=== PATIENT | female | born 1955 | race Caucasian/White ===

== ENCOUNTER 2017-04-24 04:29 | Emergency (ER) | payer BC, MEDICARE ==
[~2017-04-24] VITALS: Ht 167.6 cm; Wt 56.7 kg
[~2017-04-24 04:29] MED LIST: ACHD5005 PO; ALBU8.5H2 IH; AMIT25TA9 PO; ASP81TEC PO; CEFU250T11 PO; CIPR500T78 PO; DLT120CCR PO; LEVO75TA6 PO; METR500T PO; NAPR-689 PO; OMG1KC PO; PNT40TEC PO; RNT150T PO; TRIF5TAB PO; fish oil
[2017-04-24] MEDS ORDERED: RT-ALBUINH IH (06:23)
[2017-04-24] MEDS ORDERED: AZIT250T5 PO (06:23)
[2017-04-24] MEDS ORDERED: BENZ200C51 PO (06:23)
--- NOTE | 2017-04-24 06:24 | ED General ---
General Chief Complaint: Cough/Cold/Flu Symptoms Stated Complaint: COUGH Nursing Triage Note: PT TO ED 6 W/ C/O COUGH X3WKS. REPORTS WAS SEEN BY [facility]RGENT [facility], DX W/ PNEUMONIA BUT NOT "BILEPLASMA PNEUMONIA". STATES SHE WAS GIVEN ABX AT THAT TIME, TOOK IT FOR A FEW DAYS, STARTED TO FEEL BETTER BUT BEGAN TO BREAK OUT IN A RASH SO SHE STOPPED. STATES SYMPTOMS WORSENED AGAIN YESTERDAY. NO OTHER C/O VOICED Nursing Sepsis Screen: No Definite Risk Source of Information: Patient Exam Limitations: No Limitations History of Present Illness Time Seen by Provider: 04:32 Initial Comments This 62-year-old woman presents to the emergency room with complaint of cough 3 weeks. She was initially treated by urgent care for pneumonia with Levaquin. However, she developed a rash related to the Levaquin and discontinued use. Cough initially improved while on the antibiotics but promptly rebounded. She apparently was tested for mycoplasma pneumonia and was negative. Patient is immunocompromised at baseline due to CLL. She is afebrile. She reports her cough is very disruptive and affects her sleep. Allergies and Home Medications Allergies Coded Allergies: levofloxacin (Verified Allergy, Intermediate, RASH, 04/24/17) Sulfa (Sulfonamide Antibiotics) (Verified Allergy, Unknown, 04/24/17) prednisone (Verified Allergy, Unknown, 04/24/17) Home Medications Albuterol 8.5 Gm Hfa.aer.ad, 8.5 GM IH PRN, (Reported) 1 INHALATION EVERY 4 HOURS NEEDED FOR WHEEZING OR SHORTNESS OF BREATH Albuterol Sulfate 1 Puff Puff, 2 PUFF IH Q4H PRN for SHORTNESS OF BREATH, #1 1 PUFF = 90 MCG Prescribed by: AYO HERMOSILLO on 04/24/17622 Amitriptyline Hcl 25 Mg Tab, 25 MG PO HS, (Reported) Aspirin 81 Mg Tabec, 81 MG PO DAILY, (Reported) Azithromycin 250 Mg Tablet, 250 MG PO UD, #6 TAKE 2 TABLETS ON DAY ONE THEN TAKE 1 TABLET DAILY FOR FOUR MORE DAYS Prescribed by: AYO HERMOSILLO on 04/24/17622 Benzonatate 200 Mg Capsule, 200 MG PO TID PRN for COUGH, #20 Prescribed by: AYO HERMOSILLO on 04/24/1723 Levothyroxine Sodium 75 Mcg Tablet, 75 MCG PO DAILY, (Reported) Naproxen 500 Mg Tablet, 1 TAB PO BID, #60 Prescribed by: ERIK CAMACHO on 08/08/14 9883 Trifluoperazine Hcl 5 Mg Tablet, 5 MG PO HS, (Reported) Constitutional: no symptoms reported EENTM: no symptoms reported Respiratory: see HPI Cardiovascular: no symptoms reported Gastrointestinal: no symptoms reported Genitourinary: no symptoms reported Musculoskeletal: no symptoms reported Skin: no symptoms reported Psychiatric/Neurological: No Symptoms Reported Hematologic/Lymphatic: No Symptoms Reported Immunological/Allergic: see HPI Past Juzpflq-Tnxbgh-Sjbyme Hx Patient Social History Alcohol Use: Denies Use Recreational Drug Use: No Smoking Status: Current Everyday Smoker Type Used: Cigarettes 2nd Hand Smoke Exposure: Yes Recent Foreign Travel: No Contact w/Someone Who Travel: No Recent Infectious Disease Expo: No Recent Hopitalizations: No Seasonal Allergies Seasonal Allergies: No Surgeries HX Surgeries: Yes (CARPAL TUNNEL) Surgeries: Hysterectomy, Tubal Ligation Respiratory Hx Respiratory Disorders: Yes Respiratory Disorders: Asthma Cardiovascular Hx Cardiac Disorders: Yes Cardiac Disorders: High Cholesterol Neurological Hx Neurological Disorders: No 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 Genitourinary Hx Genitourinary Disorders: No Gastrointestinal Hx Gastrointestinal Disorders: Yes Gastrointestinal Disorders: Irritable Bowel Musculoskeletal Hx Musculoskeletal Disorders: No Endocrine Hx Endocrine Disorders: Yes Endocrine Disorders: Hyperthyroidism HEENT HX ENT Disorders: No Cancer Hx Cancer: Yes Cancer: Leukemia (CLL) Psychosocial Hx Psychiatric Problems: No Blood Transfusions Hx Blood Disorders: No Physical Exam Vital Signs Vital Sign - Last 12Hours 04/24/17 04:33 Temp 96.4 Pulse 72 Resp 20 B/P (MAP) 135/85 Pulse Ox 99 O2 Delivery Room Air Capillary Refill : Less Than 3 Seconds General Appearance: No Apparent Distress, WD/WN HEENT: PERRL/EOMI, Normal ENT Inspection, Pharynx Normal Neck: Normal Inspection Respiratory: Lungs Clear, Normal Breath Sounds, No Accessory Muscle Use, No Respiratory Distress, Other (forced expiration is a bit delayed and triggers cough) Cardiovascular: Regular Rate, Rhythm, No Edema, No Murmur Gastrointestinal: Normal Bowel Sounds, Non Tender, Soft Extremity: Normal Inspection, No Pedal Edema Neurologic/Psychiatric: Alert, Oriented x3, No Motor/Sensory Deficits, Normal 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 However, given patient's smoking and CLL, I feel it is appropriate to treat for this prolonged cough. Patient was advised to quit smoking immediately. She was given a prescription for Tessalon Perles for cough suppression and a prescription for azithromycin. A prescription for ProAir inhaler was given for treatment of the bronchospastic component. Diagnostic Imaging Diagonstic Imaging: Xray Plain Films/CT/US/NM/MRI: chest Comments Chest x-ray viewed by me. Report not yet available. No acute abnormalities appreciated. Departure Impression Impression: Primary Impression: Acute bronchitis Qualified Codes: J20.9 - Acute bronchitis, unspecified Disposition: 01 HOME, SELF-CARE Condition: Stable Departure-Patient Inst. Decision time for Depature: 06:10 Referrals: ROMEO ALEJANDRE DO (PCP/Family) Primary Care Physician Patient Instructions: Acute Bronchitis, Adult (DC), SMOKING CESSATION Add. Discharge Instructions: Discontinue smoking immediately. You may use nicotine replacement such as patches. Also placed something in your hands and mouth such as toothpicks, gum , etc. to satisfy the hand and mouth habit. Use your inhaler as prescribed. Complete your antibiotics as prescribed. Follow-up with your primary care provider in a few days if not improving. All discharge instructions reviewed with patient and/or family. Voiced understanding. Scripts Azithromycin (Azithromycin) 250 Mg Tablet 250 MG PO UD, #6 TAB TAKE 2 TABLETS ON DAY ONE THEN TAKE 1 TABLET DAILY FOR FOUR MORE DAYS Prov: AYO KIRK MD 04/24/17 Benzonatate (Benzonatate) 200 Mg Capsule 200 MG PO TID Y for COUGH, #20 CAP Prov: AYO KIRK MD 04/24/17 Albuterol Sulfate (PROAIR HFA) 1 Puff Puff 2 PUFF IH Q4H Y for SHORTNESS OF BREATH, #1 PUFF 1 PUFF = 90 MCG Prov: AYO KIRK MD 04/24/17 AYO KIRK MD Apr 24, 2017 06:23
[2017-04-24 06:27] VITALS: BP 131/78
--- NOTE | 2017-04-24 07:02 | Diagnostic Imaging Report ---
INDICATION: Persistent cough. PA and lateral views of the chest are obtained. Comparison is made to study of 05/17/2013. Heart size and pulmonary vascularity remain within normal limits. There is no evidence of pneumothorax or consolidation. Surgical clips are again seen in the left axilla. No significant pleural fluid is detected. IMPRESSION: No acute abnormality or adverse change is identified. Dictated by: Dictated on workstation # [id number]
== END 2017-04-24 06:27 | disposition home or self-care (01) ==
LOC: EDUNIT# 04:29 → ER 04:31
DX: J20.9 Acute bronchitis, unspecified (principal); J45.909 Unspecified asthma, uncomplicated; E78.00 Pure hypercholesterolemia, unspecified; E03.9 Hypothyroidism, unspecified; F17.210 Nicotine dependence, cigarettes, uncomplicated; Z85.6 Personal history of leukemia; Z79.82 Long term (current) use of aspirin; Z90.710 Acquired absence of both cervix and uterus; Z98.51 Tubal ligation status
CPT/HCPCS: 71020; 99282

== ENCOUNTER 2017-09-22 04:39 | Emergency (ER) | payer BC ==
[~2017-09-22] VITALS: Ht 170.2 cm; Wt 56.7 kg
[~2017-09-22 04:39] MED LIST changes: +AZIT250T12 PO; +BENZ200C51 PO; +RT-ALBUINH IH
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
[2017-09-22] MEDS ORDERED: ZOLP5TAB7 (04:51)
[2017-09-22] MEDS ORDERED: ATOR80TA76 (04:51)
[2017-09-22] MEDS ORDERED: RT-ALBUTEROL/IPRATROPIUM 3 ML (DUONEB) VIAL INH ONE (05:00)
--- NOTE | 2017-09-22 05:02 | ED Respiratory ---
General Chief Complaint: Cough/Cold/Flu Symptoms Stated Complaint: POSS KIDNEY INFECTION,POSS FEVER,SOB Nursing Triage Note: possible fever, cough, bodyache x3 days Source: patient, other Exam Limitations: no limitations History of Present Illness Time seen by provider: 04:52 Initial Comments Patient presents to ER by private conveyance with a significant other and a chief complaint of for 3 days she's had progressively worsening bodyaches chills and occasional cough nonproductive of sputum. She feels like she's had a fever but she's not checked with a thermometer. She has not taken any Tylenol or Motrin. She does not have a history of COPD however she does smoke about a pack a day. The last couple days she's reduced down to 1 or 2 cigarettes per day. She also has a history of CLL but she is not on any current treatment for this. She denies using breathing treatments having asthma or other structural lung disease. No nausea, vomiting, diarrhea, rash. Allergies and Home Medications Allergies Coded Allergies: levofloxacin (Verified Allergy, Intermediate, RASH, 04/24/17) Sulfa (Sulfonamide Antibiotics) (Verified Allergy, Unknown, 04/24/17) prednisone (Verified Allergy, Unknown, 04/24/17) Home Medications Albuterol 8.5 Gm Hfa.aer.ad, 8.5 GM IH PRN, (Reported) 1 INHALATION EVERY 4 HOURS NEEDED FOR WHEEZING OR SHORTNESS OF BREATH Albuterol Sulfate 1 Puff Puff, 2 PUFF IH Q4H PRN for SHORTNESS OF BREATH, #1 1 PUFF = 90 MCG Prescribed by: AYO HERMOSILLO on 04/24/17 0623 Amitriptyline Hcl 25 Mg Tab, 25 MG PO HS, (Reported) Aspirin 81 Mg Tabec, 81 MG PO DAILY, (Reported) Atorvastatin Calcium 80 Mg Tablet, (Reported) Levothyroxine Sodium 75 Mcg Tablet, 75 MCG PO DAILY, (Reported) Trifluoperazine Hcl 5 Mg Tablet, 5 MG PO HS, (Reported) Zolpidem Tartrate 5 Mg Tablet, (Reported) Constitutional: chills, No fever, malaise EENTM: No hearing loss, No ear pain Respiratory: cough, No phlegm, short of breath, No wheezing Cardiovascular: No chest pain, No palpitations Gastrointestinal: No nausea, No vomiting Genitourinary: No discharge, No dysuria Musculoskeletal: muscle pain (whole body) Skin: No pruritus, No rash Past Pozuvvy-Ifqvyr-Rlwdyc Hx Patient Social History Alcohol Use: Denies Use Recreational Drug Use: No Smoking Status: Current Everyday Smoker Type Used: Cigarettes 2nd Hand Smoke Exposure: Yes Recent Foreign Travel: No Contact w/Someone Who Travel: No Recent Infectious Disease Expo: No Recent Hopitalizations: No Seasonal Allergies Seasonal Allergies: No Surgeries History of Surgeries: Yes (CARPAL TUNNEL) Surgeries: Hysterectomy, Tubal Ligation Respiratory History of Respiratory Disorde: Yes Respiratory Disorders: Asthma Cardiovascular History of Cardiac Disorders: Yes Cardiac Disorders: High Cholesterol Neurological History of Neurological Disord: No 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 Genitourinary History of Genitourinary Disor: Yes Genitourinary Disorders: UTI-Chronic Gastrointestinal History of Gastrointestinal Di: Yes Gastrointestinal Disorders: Gastroesophageal Reflux, Irritable Bowel Musculoskeletal History of Musculoskeletal Dis: No Endocrine History of Endocrine Disorders: Yes Endocrine Disorders: Hyperthyroidism HEENT History of HEENT Disorders: No Cancer History of Cancer: Yes Cancer: Leukemia Psychosocial History of Psychiatric Problem: No Integumentary History of Skin or Integumenta: No Blood Transfusions History of Blood Disorders: No Physical Exam Vital Signs Vital Sign - Last 12Hours Capillary Refill : Less Than 3 Seconds General Appearance: WD/WN, no apparent distress Eyes: Bilateral Eye Normal Inspection, Bilateral Eye PERRL, Bilateral Eye EOMI HEENT: PERRL/EOMI, normal ENT inspection, TMs normal, pharynx normal (oral mucosa is mildly dry), No pharyngeal erythema, No tonsillar exudate Neck: non-tender, supple, normal inspection Respiratory: chest non-tender, no respiratory distress, no accessory muscle use , decreased breath sounds, rhonchi (few bilateral) Cardiovascular: normal peripheral pulses, regular rate, rhythm, no edema Neurologic/Psychiatric: alert, normal mood/affect, oriented x 3 Skin: normal color, warm/dry Progress/Results/Core Measures Suspected Sepsis Recent Fever Within 48 Hours: No Infection Criteria Present: None New/Unexplained Altered Menta: No Sepsis Screen: No Definite Risk Sepsis Diagnosis: SIRS Temperature:98.9 Pulse: 87 Respiratory Rate: 16 Laboratory Tests 09/22/17 05:00: White Blood Count 23.3H Blood Pressure 145 /81 Mean: 102 Laboratory Tests 09/22/17 05:00: Creatinine 0.85, Platelet Count 287, Total Bilirubin 0.5 Results/Orders Lab Results Laboratory Tests Test 09/22/17 05:00 Range/Units White Blood Count 23.3 H 4.3-11.0 10^3/uL Red Blood Count 4.56 4.35-5.85 10^6/uL Hemoglobin 15.3 11.5-16.0 G/DL Hematocrit 45 35-52 % Mean Corpuscular Volume 99 80-99 FL Mean Corpuscular Hemoglobin 34 25-34 PG Mean Corpuscular Hemoglobin Concent 34 32-36 G/DL Red Cell Distribution Width 12.9 10.0-14.5 % Platelet Count 287 130-400 10^3/uL Mean Platelet Volume 9.6 7.4-10.4 FL Neutrophils (%) (Auto) 62 42-75 % Lymphocytes (%) (Auto) 30 12-44 % Monocytes (%) (Auto) 7 0-12 % Eosinophils (%) (Auto) 1 0-10 % Basophils (%) (Auto) 0 0-10 % Neutrophils # (Auto) 14.3 H 1.8-7.8 X 10^3 Lymphocytes # (Auto) 7.0 H 1.0-4.0 X 10^3 Monocytes # (Auto) 1.7 H 0.0-1.0 X 10^3 Eosinophils # (Auto) 0.2 0.0-0.3 10^3/uL Basophils # (Auto) 0.1 0.0-0.1 10^3/uL Neutrophils % (Manual) 61 % Lymphocytes % (Manual) 29 % Monocytes % (Manual) 7 % Eosinophils % (Manual) 2 % Band Neutrophils 1 % Blood Morphology Comment NORMAL Sodium Level 137 135-145 MMOL/L Potassium Level 4.2 3.6-5.0 MMOL/L Chloride Level 105 98-107 MMOL/L Carbon Dioxide Level 23 21-32 MMOL/L Anion Gap 9 5-14 MMOL/L Blood Urea Nitrogen 11 7-18 MG/DL Creatinine 0.85 0.60-1.30 MG/DL Estimat Glomerular Filtration Rate > 60 BUN/Creatinine Ratio 13 Glucose Level 119 H 70-105 MG/DL Calcium Level 9.2 8.5-10.1 MG/DL Total Bilirubin 0.5 0.1-1.0 MG/DL Aspartate Amino Transf (AST/SGOT) 20 5-34 U/L Alanine Aminotransferase (ALT/SGPT) 19 0-55 U/L Alkaline Phosphatase 81 40-136 U/L C-Reactive Protein High Sensitivity 0.56 H 0.00-0.50 MG/DL Total Protein 7.1 6.4-8.2 GM/DL Albumin 4.1 3.2-4.5 GM/DL My Orders Orders - TERA SCHWAB Cbc With Automated Diff (09/22/17 04:56) Comprehensive Metabolic Panel (09/22/17 04:56) Chest Pa/Lat (2 View) (09/22/17 04:56) Albuterol/Ipra Inhalation Soln (Duoneb I (09/22/17 05:00) Svn Sm Volume Nebulizer Rt-Rfs (09/22/17 04:56) Manual Differential (09/22/17 05:00) Hs C Reactive Protein (09/22/17 05:18) Ondansetron Oral Dissolve Tab (Zofran (09/22/17 05:30) Medications Given in ED Current Medications Medications Dose Ordered Sig/Cam Route Start Time Stop Time Status Last Admin Dose Admin Albuterol/ Ipratropium 3 ml ONCE ONCE INH 09/22/17 05:00 09/22/17 05:01 DC 09/22/17 05:20 3 ML Ondansetron HCl 4 mg ONCE ONCE PO 09/22/17 05:30 09/22/17 05:31 DC 09/22/17 05:34 4 MG Vital Signs/I&O Vital Sign - Last 12Hours 09/22/17 09/22/17 09/22/17 04:52 04:52 05:21 Temp 98.9 Pulse 87 Resp 16 B/P (MAP) 145/81 (102) Pulse Ox 97 96 O2 Delivery Room Air Room Air Room Air Capillary Refill : Less Than 3 Seconds Blood Pressure Mean: 102 Progress Note #1: Time: 05:01 Progress Note We'll obtain basic blood work and a chest x-ray. Patient is afebrile this time with normal vital signs. Progress Note #2: Time: 05:17 Progress Note [place] leukocytosis without left shift. Compared to a few years ago 16-18, 000 white count this is probably not indicative of bacterial infection but more likely her CLL. Diagnostic Imaging Diagonstic Imaging: Xray Plain Films/CT/US/NM/MRI: chest (2v) Reviewed: Reviewed by Me Departure Impression Impression: Primary Impression: Upper respiratory infection Qualified Codes: J06.9 - Acute upper respiratory infection, unspecified; B97.89 - Other viral agents as the cause of diseases classified elsewhere Disposition: 01 HOME, SELF-CARE Condition: Stable Departure-Patient Inst. Decision time for Depature: 05:55 Referrals: ROMEO ALEJANDRE DO (PCP/Family) Primary Care Physician Patient Instructions: Viral Upper Respiratory Infection, Adult (DC) Add. Discharge Instructions: Drink plenty of fluids. Use the Zofran 1 tablet on the tongue allowed to dissolve and absorbed your mouth every 6 hours as needed for nausea or vomiting. Use Tylenol 1000 mg every 8 hours and or ibuprofen 800 mg every 8 hours for body aches, chills, fever. Follow up with your primary care physician if you're not seeing improvement in 7-10 days. All discharge instructions reviewed with patient and/or family. Voiced understanding. Scripts Ondansetron (Ondansetron Odt) 4 Mg Tab.rapdis 4 MG PO Q6H Y for NAUSEA/VOMITING, #8 TAB 0 Refills Prov: TERA SCHWAB 09/22/17 Copy Copies To 1: ROMEO ALEJANDRE TITUS J Sep 22, 2017 05:02
[2017-09-22 05:13] LABS: BASOPHILS # (AUTO) 0.1 10^3/uL (0.0-0.1); BASOPHILS % (AUTO) 0 % (0-10); EOSINOPHILS # (AUTO) 0.2 10^3/uL (0.0-0.3); EOSINOPHILS % (AUTO) 1 % (0-10); HEMATOCRIT 45 % (35-52); HEMOGLOBIN 15.3 G/DL (11.5-16.0); LYMPHOCYTES % (AUTO) 30 % (12-44); MEAN CORPUSCULAR HEMOGLOBIN 34 PG (25-34); MEAN CORPUSCULAR HGB CONC 34 G/DL (32-36); MEAN CORPUSCULAR VOLUME 99 FL (80-99); MEAN PLATELET VOLUME 9.6 FL (7.4-10.4); MONOCYTES # (AUTO) 1.7 X 10^3 (0.0-1.0); MONOCYTES % (AUTO) 7 % (0-12); NEUTROPHILS # (AUTO) 14.3 X 10^3 (1.8-7.8); NEUTROPHILS % (AUTO) 62 % (42-75); PLATELET COUNT 287 10^3/uL (130-400); RED BLOOD COUNT 4.56 10^6/uL (4.35-5.85); RED CELL DISTRIBUTION WIDTH 12.9 % (10.0-14.5); WHITE BLOOD COUNT 23.3 10^3/uL (4.3-11.0)
[2017-09-22] MEDS ORDERED: ONDANSETRON 4 MG (ZOFRAN) ORAL DISSOLVE TAB PO ONE (05:30)
[2017-09-22 05:31] LABS: ALANINE AMINOTRANSFERASE 19 U/L (0-55); ALBUMIN 4.1 GM/DL (3.2-4.5); ALKALINE PHOSPHATASE 81 U/L (40-136); BILIRUBIN,TOTAL 0.5 MG/DL (0.1-1.0); BUN/CREATININE RATIO 13; CALCIUM 9.2 MG/DL (8.5-10.1); CARBON DIOXIDE 23 MMOL/L (21-32); CHLORIDE 105 MMOL/L (98-107); CREATININE SERUM 0.85 MG/DL (0.60-1.30); GFR ESTIMATED > 60; GLUCOSE 119 MG/DL (70-105); POTASSIUM 4.2 MMOL/L (3.6-5.0); SODIUM 137 MMOL/L (135-145); TOTAL PROTEIN 7.1 GM/DL (6.4-8.2)
[2017-09-22 05:35] LABS: BAND NEUTROPHILS 1 %; LYMPHOCYTES % (MANUAL) 29 %; MONOCYTES % (MANUAL) 7 %; NEUTROPHILS % (MANUAL) 61 %
[2017-09-22 05:36] LABS: EOSINOPHILS % (MANUAL) 2 %; RBC MORPH NORMAL
[2017-09-22] MEDS ORDERED: ONDA4TAB11 PO (05:56)
[2017-09-22 06:02] VITALS: BP 145/81
--- NOTE | 2017-09-22 06:52 | Diagnostic Imaging Report ---
INDICATION: Nausea, vomiting and fever. PA and lateral chest. FINDINGS: Heart size and pulmonary vascularity are normal. Lungs are clear. There are no effusions or pneumothoraces. IMPRESSION: Negative chest. Dictated by: Dictated on workstation # [id number]
== END 2017-09-22 05:58 | disposition home or self-care (01) ==
LOC: EDUNIT# 04:39 → ER 04:41
DX: J06.9 Acute upper respiratory infection, unspecified (principal); J45.909 Unspecified asthma, uncomplicated; E78.00 Pure hypercholesterolemia, unspecified; K21.9 Gastro-esophageal reflux disease without esophagitis; E05.90 Thyrotoxicosis, unspecified without thyrotoxic crisis or storm; F17.210 Nicotine dependence, cigarettes, uncomplicated; Z98.51 Tubal ligation status; Z85.6 Personal history of leukemia; Z87.440 Personal history of urinary (tract) infections; Z87.19 Personal history of other diseases of the digestive system; Z90.710 Acquired absence of both cervix and uterus; Z79.82 Long term (current) use of aspirin
CPT/HCPCS: 36415; 71020; 80053; 85007; 85027; 86141; 94640; 99283

== ENCOUNTER 2018-12-18 12:51 | Outpatient (CLI) | payer BC ==
[~2018-12-18] VITALS: Ht 170.2 cm; Wt 56.7 kg
[~2018-12-18 12:51] MED LIST changes: +ATOR80TA76; +ONDA4TAB11 PO; +ZOLP5TAB7 PO
[2018-12-18] MEDS ORDERED: PANT40TA3 PO (13:06)
[2018-12-18] MEDS ORDERED: LINA290C PO (13:06)
[2018-12-18] MEDS ORDERED: CHLO25TA20 PO (13:06)
[2018-12-18] MEDS ORDERED: TRAV5DRO OU (13:06)
[2018-12-18] MEDS ORDERED: AMIT25TA9 PO (13:06)
[2018-12-18] MEDS ORDERED: LEVO75TA6 PO (13:06)
== END 2018-12-18 13:08 | disposition home or self-care (01) ==
LOC: PREOP 12:51
PROVIDERS: ATTEND Surgery
DX: Z01.818 Encounter for other preprocedural examination (principal)

== ENCOUNTER 2018-12-19 12:08 | Day surgery (SDC) | payer BC ==
[~2018-12-19] VITALS: Ht 170.2 cm; Wt 56.7 kg
[~2018-12-19 12:08] MED LIST changes: +CHLO25TA20 PO; +LINA290C PO; +PANT40TA3 PO; +TRAV5DRO OU
[2018-12-19] MEDS ORDERED: NS IV 500 ML 500 ML ONE (12:22)
[2018-12-19] MEDS ORDERED: NS IV 500 ML 500 ML IV PRN (12:25)
[2018-12-19] MEDS ORDERED: HURRICAINE EXT TUBE (BENZOCAINE) XX PRN (12:30)
[2018-12-19] MEDS ORDERED: MIDAZOLAM 2 MG/2 ML (VERSED) VIAL IVP ONE (12:30)
[2018-12-19] MEDS ORDERED: LIDOCAINE JELLY 2% 6 ML SYRINGE MM PRN (12:30)
[2018-12-19] MEDS ORDERED: fentaNYL INJECTION 100 MCG/2 ML AMP IVP ONE ×2 (12:30→13:40)
[2018-12-19 12:45] VITALS: BP 110/56
[2018-12-19] MEDS ORDERED: D5 LR IV SOLUTION 1,000 ML IV SCH (13:40)
[2018-12-19] MEDS ORDERED: D5 LR IV SOLUTION 1,000 ML IV ONE (13:42)
[2018-12-19] MEDS ORDERED: fentaNYL INJECTION 100 MCG/2 ML AMP ONE ×2 (13:42→14:22)
--- NOTE | 2018-12-19 14:11 | Conscious Sedation/ASA ---
Conscious Sedation Pre-Proced Time 13:00 ASA Score 2 For ASA 3 and 4: Consider anesthesia and medical clearance. Also, for patients with a history of failed moderate sedation consider anesthesia. Airway Lungs Heart ASA score ASA 1: a normal healthy patient ASA 2: a patient with a mild systemic disease (mid diabetes, controlled hypertension, obesity ASA 3: a patient with a severe systemic disease that limits activity (angina , COPD, prior Myocardial infarction) ASA 4: a patient with an incapacitating disease that is a constant threat to life (CHF, renal failure) ASA 5: a moribund patient not expected to survive 24 hrs. (ruptured aneurysm) ASA 6: a declared brain- patient whose organs are being harvested. For emergent operations, add the letter E after the classification Mallampati Classification Grade 2 Sedation Plan Analgesia, Amnesia, Plan communicated to team members, Discussed options with patient/fam, Discussed risks with patient/fam The patient is an appropriate candidate to undergo the planned procedure, sedation, and anesthesia. The patient immediately re-assessed prior to indication. ANGELICA GARCIA MD Dec 19, 2018 14:11
--- NOTE | 2018-12-19 14:12 | Progress Note-Pre Operative ---
Pre-Operative Progress Note H&P Reviewed The H&P was reviewed, patient examined and no changes noted. Date Seen by Provider: Dec 19, 2018 Time Seen by Provider: 13:00 Date H&P Reviewed: Dec 19, 2018 Time H&P Reviewed: 13:00 Pre-Operative Diagnosis: dysphagia, GERD ANGELICA GARCIA MD Dec 19, 2018 14:12
[2018-12-19] MEDS ORDERED: HYDROcodone/APAP 5 MG/325 MG (LORTAB) TAB PO PRN (14:15)
[2018-12-19] MEDS ORDERED: ACETAMINOPHEN 325 MG TABLET PO PRN (14:15)
[2018-12-19] MEDS ORDERED: morphine INJ 10 MG/ML 1ML (SYR OR VIAL) IV PRN (14:15)
[2018-12-19] MEDS ORDERED: ONDANSETRON 4 MG/2 ML (SDV) Z0FRAN IV PRN (14:15)
--- NOTE | 2018-12-19 14:15 | Discharge Inst-Surgical ---
D/C Lap Instructions-JOSE Follow Up Appt 3m0 Activity as tolerated High Fiber Diet 25g or more per day Avoid Alcohol, Caffeine, Spicy [place] and Acid foods. Drink 64 fluid oz or more of fluids per day. Symptoms to Report: Fever over 101 degree F, Nausea/Vomiting If any problems/questions: Contact your physician or go to Emergency Room ANGELICA GARCIA MD Dec 19, 2018 14:15
[2018-12-19] MEDS ORDERED: LIDOCAINE JELLY 2% 6 ML SYRINGE ONE (14:20)
[2018-12-19] MEDS ORDERED: HURRICAINE EXT TUBE (BENZOCAINE) ONE (14:22)
[2018-12-19] MEDS ORDERED: MIDAZOLAM 2 MG/2 ML (VERSED) VIAL ONE ×4 (14:22)
[2018-12-19] MEDS ORDERED: ONDANSETRON 4 MG/2 ML (SDV) Z0FRAN ONE (14:48)
--- NOTE | 2018-12-19 15:26 | Progress Note-Post Operative ---
Post-Operative Progess Note Surgeon (s)/It Recruiter (s) Surgeon ANGELICA GARCIA MD It Recruiter: none Pre-Operative Diagnosis dysphagia, GERD Post-Operative Diagnosis reflux esophagitis(stage2), mild distal esophageal stricture, mild-moderate gastritis. Procedure & Operative Findings Date of Procedure 12/19/18 Procedure Performed/Findings EGD with bx and balloon dilatation. Anesthesia Type cs Estimated Blood Loss Estimated blood loss (mL): minimal Specimens/Packing Specimens Removed ge jxn, antrum ANGELICA GARCIA MD Dec 19, 2018 15:26
[2018-12-19 15:35] VITALS: BP 113/65
[2018-12-19 16:00] VITALS: BP 127/83
[2018-12-19 16:10] VITALS: BP 127/83
--- NOTE | 2018-12-20 02:20 | OPERATIVE REPORT ---
DATE OF SERVICE: 12/19/2018 ATTENDING PRIMARY SOFTWARE SUPPORT ANALYST: Ashley Stoll APRN PREOPERATIVE DIAGNOSES: Gastroesophageal reflux disease and dysphagia. POSTOPERATIVE DIAGNOSES: Reflux esophagitis stage II, mild distal esophageal stricture, small hiatal hernia 1 cm in size, moderate gastritis. PROCEDURE: EGD with biopsy and balloon dilatation. SURGEON: Angelica Garcia MD ANESTHESIA: Conscious sedation. ESTIMATED BLOOD LOSS: Minimal. FINDINGS: Reflux esophagitis stage II with a mild distal esophageal stricture and Schatzki's ring, small hiatal hernia approximately 1 cm in size, moderate severity gastritis. No formal ulcerations, polyps or any neoplasms. Pylorus and duodenum appeared normal with no distal obstructions. DISPOSITION: The patient tolerated the procedure well. INDICATIONS: The patient is a 63-year-old female who has had multiple gastrointestinal issues. She has a long previous history of smoking and greater than 40 pack years. She developed dysphagia and stopped smoking for several months ago. In July 2018, she underwent an EGD and it appears that she has significant reflux esophagitis as well as a hiatal hernia from the pictures that she had brought from her previous endoscopy. The patient was also identified what appeared to be a mild distal esophageal stricture and Schatzki's ring. She also has had significant hemorrhoids that bleed approximately two times a week. Upon examination in the office, she was found to have stage III external and internal hemorrhoids that were edematous and swollen as well as irritated. DESCRIPTION OF PROCEDURE: The patient was brought to the endoscopy suite, laid in a left lateral decubitus position with head slightly elevated. After adequate IV pain and sedating medications and conscious sedation anesthesia, the mouthpiece was applied. Endoscope was placed in the mouth, visualizing the pharynx and hypopharyngeal region. Vocal cords, epiglottis and vallecula identified and appeared to be normal. The endoscope was then gently intubated at the esophageal opening and esophagus insufflated. Endoscope was then advanced through the first, second and third portion of the esophagus at the level of the GE junction, a reflux esophagitis stage II identified. A mild distal esophageal stricture and Schatzki's ring identified. A biopsy was taken of the GE junction, with visualization of good hemostasis. Endoscope was then advanced in the stomach and endoscope retroflexed, visualizing a small hiatal hernia approximately 1 cm in size. There was a itzx-pa-qqzyjgbr gastritis. No formal ulcerations, polyps or any neoplasms. A biopsy was taken of the antrum with forceps to rule out H. pylori with visualization of good hemostasis. The endoscope was then advanced to the pylorus and the first and second portion of the duodenum, which appeared normal with no distal obstructions. We then proceeded with dilatation of esophageal stricture. The balloon was placed in the stomach and pulled back to the area of stricture and first insufflated to 2 atmospheres of pressure with no resistance. We then proceeded to 4 atmospheres of pressure with mild resistance and then eventually to 6 atmospheres of pressure or 20 mm in luminal diameter with mild to moderate resistance and left this in place for approximately 60 seconds. The balloon was then desufflated and removed with visualization of good hemostasis as well as no mucosal tears. The endoscope was then slowly withdrawn while taking a second look and suctioning of residual air with no additional findings. The patient tolerated the procedure well. We will recommend continued medical management with the necessary lifestyle and diet accommodation including small and more frequent meals, avoidance of eating at night as well as head elevation while lying supine. She also needs to avoid caffeinated beverages, spicy, greasy and acidic foods as well as continue smoking cessation. We also have her continue with Protonix on a daily basis. She also may need a graded dilatation if she does have recurrent dysphagia. We will have her follow up for another dilatation procedure. Job ID: [id number] DocumentID: [id number] Dictated Date: 12/19/2018 15:35:16 Rn School Date: 12/20/2018 02:19:44 Dictated By: ANGELICA GARCIA MD
== END 2018-12-19 16:10 | disposition home or self-care (01) ==
LOC: ENDO 12:08
PROVIDERS: ATTEND Surgery
DX: K21.0 Gastro-esophageal reflux disease with esophagitis (principal); K22.2 Esophageal obstruction; K44.9 Diaphragmatic hernia without obstruction or gangrene; K29.70 Gastritis, unspecified, without bleeding; K64.2 Third degree hemorrhoids; C91.11 Chronic lymphocytic leukemia of B-cell type in remission; E78.00 Pure hypercholesterolemia, unspecified; E05.90 Thyrotoxicosis, unspecified without thyrotoxic crisis or storm; K59.00 Constipation, unspecified; Z87.891 Personal history of nicotine dependence; Z79.899 Other long term (current) drug therapy

== ENCOUNTER 2018-12-31 08:13 | Emergency (ER) | payer BC | END 2018-12-31 08:16 | disposition left against medical advice (07) | LOC: EDUNIT# 08:13 → ER 08:15 | DX: T18.108A Unspecified foreign body in esophagus causing other injury, initial encounter (principal) ==

== ENCOUNTER 2019-01-01 09:30 | Outpatient (CLI) | payer BC ==
[~2019-01-01] VITALS: Ht 170.2 cm; Wt 56.7 kg
== END 2019-01-01 11:56 | disposition home or self-care (01) ==
LOC: PREOP 09:30
PROVIDERS: ATTEND Surgery
DX: Z01.818 Encounter for other preprocedural examination (principal)

== ENCOUNTER 2019-01-02 09:56 | Day surgery (SDC) | payer BC ==
[~2019-01-02] VITALS: Ht 170.2 cm; Wt 56.7 kg
--- OUTSIDE RECORDS SUMMARY | 2019-01-02 09:59 | XMS REPORT ---
Author Author REBECA AYOUB Organization [facility] Address [address] [place] [address] Care Team Providers Care Production Associate Name Role Phone REBECA AYOUB Unavailable PROBLEMS Unknown Problems ALLERGIES No Known Allergies ENCOUNTERS Encounter Location Date Diagnosis [facility] [address] [facility] [id number] [address] May, Sunburn L55.9 IMMUNIZATIONS No Known Immunizations SOCIAL HISTORY Never Assessed REASON FOR VISIT sunburn/skin c/o on tip of nose and on cheeks Odiliage QUINN PLAN OF CARE Activity Details Follow Up prn Reason: VITAL SIGNS Weight 116.8 lbs 2018-06-18 Temperature 97.5 degrees Fahrenheit 2018-06-18 Heart Rate 102 bpm 2018-06-18 Respiratory Rate 18 2018-06-18 Blood pressure systolic 122 mmHg 2018-06-18 Blood pressure diastolic 68 mmHg 2018-06-18 MEDICATIONS Medication Instructions Dosage Frequency Start Date End Date Duration Status Amitriptyline HCl 25 MG Orally Once a day 1 tablet 24h 30 day(s) Active Linzess 72 MCG Orally Once a day 1 capsule on an empty stomach 24h 30 day(s) Active Ambien 5 MG Orally Once a day 1 tablet at bedtime 24h Active Trifluoperazine HCl 5 MG Orally Twice a day 1 tablet 12h 30 day(s) Active Lovastatin 20 MG Orally Once a day 1 tablet with the evening meal 24h 30 day(s) Active RESULTS No Results PROCEDURES No Known procedures INSTRUCTIONS MEDICATIONS ADMINISTERED No Known Medications MEDICAL (GENERAL) HISTORY Type Description Date Medical History blood cancer Medical History hysterectomy Medical History cervical cancer Surgical History hysterectomy 1996 Surgical History carpel tunnel 2000 Hospitalization History hysterectomy 1996
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
[2019-01-02] MEDS ORDERED: NS IV 500 ML 500 ML ONE ×2 (10:09→12:52)
--- NOTE | 2019-01-02 10:28 | Conscious Sedation/ASA ---
Conscious Sedation Pre-Proced Time 10:20 ASA Score 2 For ASA 3 and 4: Consider anesthesia and medical clearance. Also, for patients with a history of failed moderate sedation consider anesthesia. Airway Lungs Heart ASA score ASA 1: a normal healthy patient ASA 2: a patient with a mild systemic disease (mid diabetes, controlled hypertension, obesity ASA 3: a patient with a severe systemic disease that limits activity (angina , COPD, prior Myocardial infarction) ASA 4: a patient with an incapacitating disease that is a constant threat to life (CHF, renal failure) ASA 5: a moribund patient not expected to survive 24 hrs. (ruptured aneurysm) ASA 6: a declared brain- patient whose organs are being harvested. For emergent operations, add the letter E after the classification Mallampati Classification Grade 2 Sedation Plan Analgesia, Amnesia, Plan communicated to team members, Discussed options with patient/fam, Discussed risks with patient/fam The patient is an appropriate candidate to undergo the planned procedure, sedation, and anesthesia. The patient immediately re-assessed prior to indication. ANGELICA GARCIA MD Jan 02, 2019 10:28
--- NOTE | 2019-01-02 10:29 | Progress Note-Pre Operative ---
Pre-Operative Progress Note H&P Reviewed The H&P was reviewed, patient examined and no changes noted. Date Seen by Provider: Jan 02, 2019 Time Seen by Provider: 10: Date H&P Reviewed: Jan 02, 2019 Time H&P Reviewed: :20 Pre-Operative Diagnosis: anemia, recurrent dysphagia ANGELIAC GARCIA MD Jan 02, 2019 10:29
[2019-01-02] MEDS ORDERED: HYDROcodone/APAP 5 MG/325 MG (LORTAB) TAB PO PRN (10:30)
[2019-01-02] MEDS ORDERED: morphine INJ 10 MG/ML 1ML (SYR OR VIAL) IV PRN (10:30)
[2019-01-02] MEDS ORDERED: ACETAMINOPHEN 325 MG TABLET PO PRN (10:30)
[2019-01-02] MEDS ORDERED: ONDANSETRON 4 MG/2 ML (SDV) Z0FRAN IV PRN (10:30)
--- NOTE | 2019-01-02 10:30 | Discharge Inst-Surgical ---
D/C Lap Instructions-JOSE Follow Up 6 weeks Activity as tolerated High Fiber Diet 25g or more per day Avoid Alcohol, Caffeine, Spicy [place] and Acid foods. Drink 64 fluid oz or more of fluids per day. Symptoms to Report: Fever over 101 degree F, Nausea/Vomiting If any problems/questions: Contact your physician or go to Emergency Room ANGELICA GARCIA MD Jan 02, 2019 10:30
[2019-01-02] MEDS ORDERED: LIDOCAINE JELLY 2% 6 ML SYRINGE MM PRN (10:45)
[2019-01-02] MEDS ORDERED: HURRICAINE EXT TUBE (BENZOCAINE) XX PRN (10:45)
[2019-01-02] MEDS ORDERED: MIDAZOLAM 2 MG/2 ML (VERSED) VIAL IVP ONE (10:45)
[2019-01-02] MEDS ORDERED: fentaNYL INJECTION 100 MCG/2 ML AMP IVP ONE (10:45)
[2019-01-02] MEDS: NS IV 500 ML 500 ML IV PRN ×2 (10:46→12:54)
[2019-01-02 12:28] VITALS: BP 105/75
[2019-01-02] MEDS ORDERED: fentaNYL INJECTION 100 MCG/2 ML AMP ONE ×2 (12:33)
[2019-01-02] MEDS ORDERED: MIDAZOLAM 2 MG/2 ML (VERSED) VIAL ONE ×5 (12:33→13:12)
[2019-01-02] MEDS ORDERED: LIDOCAINE JELLY 2% 6 ML SYRINGE ONE (12:33)
[2019-01-02] MEDS ORDERED: HURRICAINE EXT TUBE (BENZOCAINE) ONE (12:34)
[2019-01-02] MEDS ORDERED: ONDANSETRON 4 MG/2 ML (SDV) Z0FRAN ONE (12:35)
--- NOTE | 2019-01-02 13:46 | Progress Note-Post Operative ---
Post-Operative Progess Note Surgeon (s)/Tactical Air Control Party (s) Surgeon ANGELICA GARCIA MD Tactical Air Control Party: none Pre-Operative Diagnosis anemia, recurrent dysphagia Post-Operative Diagnosis reflux esophagitis(stage2), mild distal esophageal stricture, small HH(1cm), mild gastritis. inflammed stage 2-3 ext and int hemorrhoids, polyp rectum, sigmoid, hepatic flexure. Procedure & Operative Findings Date of Procedure 01/02/19 Procedure Performed/Findings EGD with balloon dilatation. Colonoscopy with bx. Anesthesia Type CS Estimated Blood Loss Estimated blood loss (mL): minimal Specimens/Packing Specimens Removed rectum, sigmoid, hepatic flexure polyp. ANGELICA GARCIA MD Jan 02, 2019 13:46
[2019-01-02 14:10] VITALS: BP 135/74
[2019-01-02 14:45] VITALS: BP 132/77
[2019-01-02 14:50] VITALS: BP 132/77
--- NOTE | 2019-01-02 16:22 | OPERATIVE REPORT ---
DATE OF SERVICE: 01/02/2019 ATTENDING [facility] ATTENDANT: Ashley Stoll APRN. PREOPERATIVE DIAGNOSES: Recurrent dysphagia, change in bowel habits encompassing what she describes as an expulsion of what appears to be seeds for the past several weeks. She did have an EGD on 12/19/2018 for a significant dysphagia and was found to have a Schatzki's ring, which was dilated to 20 mm. This was done on 12/19/2018. She was seen back on 12/26/2018 with worsening hoarseness, epigastric burning discomfort and was on Protonix; however, states that this was not helping. She has also taken Dexilant and Carafate in the past as well. She does have a long history of smoking and states that she still does smoke. She also does have a history of constipation predominantly irritable bowel syndrome and states that she takes Linzess every other day to have a bowel movement. She reports that in the past 4 weeks she has noticed a mucousy type of stool as well as what she describes as expulsion of seeds. DESCRIPTION OF PROCEDURE: The patient was brought to the endoscopy suite, laid in the left lateral decubitus position. After adequate IV pain and sedative medications and conscious sedation anesthesia, the mouthpiece was applied. Endoscope was placed in the mouth, visualizing the pharynx and hypopharyngeal region. Vocal cords, epiglottis and vallecula identified and appeared to be normal. The endoscope was then gently intubated at the esophageal opening and esophagus insufflated. The endoscope was then advanced to the first, second and third portion of the esophagus. At the level of the GE junction, a reflux esophagitis stage 2 was identified with a Schatzki's ring identified again as well. This appears unchanged from her more recent EGD. The endoscope was then easily advanced in the stomach and endoscope retroflexed visualizing a small hiatal hernia approximately 1 to 1.5 cm in size. There was a mild gastritis. No formal ulcerations, polyps or neoplasm. There was no retained food substance in the stomach to indicate any gastroparesis. The endoscope was then advanced to the pylorus and the first and second portion of duodenum, which appeared normal with no distal obstructions. We then proceeded with dilatation of the esophageal stricture. The balloon was placed in the stomach and pulled back to the area of stricture, first dilated to 2 atmospheres of pressure with no resistance. We then proceeded with 4 atmospheres of pressure with no resistance. We then proceeded to 6 and then 7 atmospheres of pressure or 20 mm in luminal diameter with a mild resistance. This was left in place for approximately 60 seconds. The balloon was desufflated and removed with visualization of good hemostasis as well as no mucosal tears. The endoscope was then slowly withdrawn while taking a second look and suctioning of the residual air with no additional findings. The patient tolerated this portion of the procedure well. We were unsure if this repeat balloon dilatation will help or if she has some form of achalasia. If she has recurrent symptoms, we will refer her for an esophageal manometry as well as potentially gastroenterology for further testing and management. We will proceed with a trial of Reglan as well. Under the same anesthesia, we then proceeded with the colonoscopy portion of the procedure. There were inflamed irritated external and internal hemorrhoids, which were between stage II and III. There was no active bleeding identified. What she describes as seeing seeds may indication small flecks of blood identified. Normal sphincter tone was felt and there were no palpable masses. The endoscope was then intubated into the anus and the rectum gently insufflated. The endoscope was then advanced through the valves of [place] of the rectum where a small polyp of approximately 1 mm in size was identified. This was biopsied and destroyed using forceps and electrocautery with visualization of good hemostasis. We then proceeded to the sigmoid colon where there was no diverticulosis identified; however, another polyp slightly larger approximately 2 to 3 mm in size was identified. This was biopsied and destroyed with forceps and cautery. We then proceeded through the descending and transverse colon to the hepatic flexure where there was another similar sized polyp identified, which was biopsied and destroyed using forceps and electrocautery. The endoscope was then advanced to the remainder of the ascending colon to the cecum, which were normal. There were no mucosal inflammatory changes as well as no polyps or any neoplasms identified. The endoscope was then slowly withdrawn while taking a second look and suctioning of residual air with no additional findings. The patient tolerated the procedure well. We will await the biopsy results of the polyps; however, we will recommend a high fiber diet with at least 30 grams of fiber daily as well as copious amounts of water to promote soft stools on a daily basis and try to wean herself off of the Linzess. Her hemorrhoids are significant at this time and we also recommend Sitz baths as well as a high fiber diet to promote soft stools; however, if this continues to be symptomatic, she may benefit from a formal Weinberg closed hemorrhoidectomy. Job ID: [id number] DocumentID: [id number] Dictated Date: 01/02/2019 13:35:26 Profile Grinder Technician Date: 01/02/2019 16:21:55 Dictated By: ANGELICA GARCIA MD MTDD
== END 2019-01-02 14:50 | disposition home or self-care (01) ==
LOC: ENDO 09:56
PROVIDERS: ATTEND Surgery
DX: D12.3 Benign neoplasm of transverse colon (principal); D12.8 Benign neoplasm of rectum; K64.2 Third degree hemorrhoids; K22.2 Esophageal obstruction; K44.9 Diaphragmatic hernia without obstruction or gangrene; K21.0 Gastro-esophageal reflux disease with esophagitis; K29.70 Gastritis, unspecified, without bleeding; K58.1 Irritable bowel syndrome with constipation; F17.210 Nicotine dependence, cigarettes, uncomplicated; C91.10 Chronic lymphocytic leukemia of B-cell type not having achieved remission; E78.00 Pure hypercholesterolemia, unspecified; E05.90 Thyrotoxicosis, unspecified without thyrotoxic crisis or storm; Z79.899 Other long term (current) drug therapy

== ENCOUNTER 2019-01-14 06:01 | Emergency (ER) | payer BC ==
[~2019-01-14] VITALS: Ht 167.6 cm; Wt 50.8 kg
[2019-01-14] MEDS ORDERED: PROMETHAZINE INJ 25 MG/ML (PHENERGAN) AMP IVP ONE (06:45)
[2019-01-14] MEDS ORDERED: diphenhydrAMINE 50 MG/ML INJ (BENADRYL) IM ONE (06:45)
--- NOTE | 2019-01-14 06:47 | ED GI ---
General Chief Complaint: Trauma-Non Activation Stated Complaint: DRY MOUTH, NAUSEA, WEAK Source of Information: Patient, Family Exam Limitations: No Limitations History of Present Illness Date Seen by Provider: Jan 14, 2019 Time Seen by Provider: 06:40 Initial Comments This 63-year-old white female presents with a complaint of persistent nausea and dehydration. The patient has had a recent EGD with Dr. GARCIA with esophageal dilatation. Allergies and Home Medications Allergies Coded Allergies: levofloxacin (Verified Allergy, Intermediate, RASH, 04/24/17) Sulfa (Sulfonamide Antibiotics) (Verified Allergy, Unknown, 04/24/17) prednisone (Verified Allergy, Unknown, 04/24/17) Home Medications Amitriptyline HCl 25 Mg Tablet, 25 MG PO HS, (Reported) Chlorpromazine HCl 25 Mg Tablet, 25 MG PO DAILY, (Reported) Levothyroxine Sodium 75 Mcg Tablet, 75 MCG PO DAILY, (Reported) Linaclotide 290 Mcg Capsule, 290 MCG PO DAILY, (Reported) Pantoprazole Sodium 40 Mg Tablet.dr, 40 MG PO DAILY, (Reported) Travoprost 5 Ml Drops, 1 DROP OU HS, (Reported) Zolpidem Tartrate 5 Mg Tablet, 5 MG PO HS, (Reported) Patient Home Medication List Home Medication List Reviewed: Yes Review of Systems Review of Systems Constitutional: No chills EENTM: No Double Vision Respiratory: Denies Cough Cardiovascular: Denies Chest Pain Gastrointestinal: Denies Abdominal Pain, Denies Constipated, Denies Diarrhea; Nausea; Denies Vomiting Genitourinary: Denies Burning Musculoskeletal: No back pain Skin: No change in color, No rash Psychiatric/Neurological: Anxiety Endocrine: No Symptoms Reported Hematologic/Lymphatic: No Symptoms Reported Past Qsfutir-Thdknu-Pvmwtg Hx Past Med/Social Hx: Reviewed Nursing Past Med/Soc Hx Patient Social History Type Used: Cigarettes Former Smoker, Quit: Dec 11, 2018 2nd Hand Smoke Exposure: No Recent Foreign Travel: No Contact w/Someone Who Travel: No Recent Hopitalizations: No Immunizations Up To Date Tetanus Booster (TDap): Unknown Seasonal Allergies Seasonal Allergies: No Past Medical History Surgeries: Yes (CARPAL TUNNEL) Hysterectomy, Tubal Ligation Respiratory: Yes Asthma Cardiac: Yes (tachycardia) High Cholesterol Neurological: No Female Reproductive Disorders: 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 0.0oz. 56.473032hh; 19.6 BMI Method:Stated General Appearance: WD/WN, mild distress HEENT: normal ENT inspection Neck: non-tender, full range of motion Respiratory: lungs clear, normal breath sounds, no respiratory distress Cardiovascular: normal peripheral pulses, regular rate, rhythm Gastrointestinal: normal bowel sounds, non tender, soft Extremities: normal range of motion, non-tender, normal inspection Back: normal inspection Neurologic/Psychiatric: no motor/sensory deficits, alert, normal mood/affect, oriented x 3 Skin: normal color, warm/dry Progress/Results/Core Measures Results/Orders Lab Results Laboratory Tests Test 01/14/19 06:41 01/14/19 07:27 Range/Units White Blood Count 15.3 H 4.3-11.0 10^3/uL Red Blood Count 4.51 4.35-5.85 10^6/uL Hemoglobin 14.8 11.5-16.0 G/DL Hematocrit 45 35-52 % Mean Corpuscular Volume 99 80-99 FL Mean Corpuscular Hemoglobin 33 25-34 PG Mean Corpuscular Hemoglobin Concent 33 32-36 G/DL Red Cell Distribution Width 13.2 10.0-14.5 % Platelet Count 277 130-400 10^3/uL Mean Platelet Volume 9.9 7.4-10.4 FL Neutrophils (%) (Auto) 29 L 42-75 % Lymphocytes (%) (Auto) 62 H 12-44 % Monocytes (%) (Auto) 6 0-12 % Eosinophils (%) (Auto) 3 0-10 % Basophils (%) (Auto) 1 0-10 % Neutrophils # (Auto) 4.5 1.8-7.8 X 10^3 Lymphocytes # (Auto) 9.4 H 1.0-4.0 X 10^3 Monocytes # (Auto) 0.9 0.0-1.0 X 10^3 Eosinophils # (Auto) 0.4 H 0.0-0.3 10^3/uL Basophils # (Auto) 0.1 0.0-0.1 10^3/uL Neutrophils % (Manual) 26 % Lymphocytes % (Manual) 66 % Monocytes % (Manual) 6 % Eosinophils % (Manual) 1 % Basophils % (Manual) 1 % Band Neutrophils 0 % Blood Morphology Comment NORMAL Sodium Level 142 135-145 MMOL/L Potassium Level 3.9 3.6-5.0 MMOL/L Chloride Level 109 H 98-107 MMOL/L Carbon Dioxide Level 23 21-32 MMOL/L Anion Gap 10 5-14 MMOL/L Blood Urea Nitrogen 10 7-18 MG/DL Creatinine 0.81 0.60-1.30 MG/DL Estimat Glomerular Filtration Rate > 60 BUN/Creatinine Ratio 12 Glucose Level 97 70-105 MG/DL Calcium Level 9.8 8.5-10.1 MG/DL Corrected Calcium 9.5 8.5-10.1 MG/DL Total Bilirubin 0.4 0.1-1.0 MG/DL Aspartate Amino Transf (AST/SGOT) 20 5-34 U/L Alanine Aminotransferase (ALT/SGPT) 21 0-55 U/L Alkaline Phosphatase 68 40-136 U/L Total Protein 7.4 6.4-8.2 GM/DL Albumin 4.4 3.2-4.5 GM/DL Lipase 48 8-78 U/L Urine Color YELLOW Urine Clarity CLEAR Urine pH 7 5-9 Urine Specific [place] 1.005 L 1.016-1.022 Urine Protein NEGATIVE NEGATIVE Urine Glucose (UA) NEGATIVE NEGATIVE Urine Ketones NEGATIVE NEGATIVE Urine Nitrite NEGATIVE NEGATIVE Urine Bilirubin NEGATIVE NEGATIVE Urine Urobilinogen NORMAL NORMAL MG/DL Urine Leukocyte Esterase NEGATIVE NEGATIVE Urine RBC (Auto) NEGATIVE NEGATIVE Urine RBC NONE /HPF Urine WBC NONE /HPF Urine Squamous Epithelial Cells 0-2 /HPF Urine Crystals NONE /LPF Urine Bacteria NEGATIVE /HPF Urine Casts NONE /LPF Urine Mucus NEGATIVE /LPF Urine Culture Indicated NO My Orders Orders - MONIE BOWEN MD Cbc With Automated Diff (01/14/19 06:37) Comprehensive Metabolic Panel (01/14/19 06:37) Lipase (01/14/19 06:37) Ct Abdomen/Pelvis W (01/14/19 06:37) Ua Culture If Indicated (01/14/19 06:37) Promethazine Injection (Phenergan Injec (01/14/19 06:45) Diphenhydramine Injection (Benadryl Inje (01/14/19 06:45) Manual Differential (01/14/19 06:41) Ns Iv 1000 Ml (Sodium Chloride 0.9%) (01/14/19 07:00) Cbc With Automated Diff (01/14/19 07:33) Comprehensive Metabolic Panel (01/14/19 07:33) Hemoglobin A1c (01/14/19 07:33) Lipase (01/14/19 07:33) Iohexol Injection (Omnipaque 350 Mg/Ml 1 (01/14/19 07:45) Received Contrast (Hold Metformin- Contr (01/14/19 07:45) Ondansetron Injection (Zofran Injectio (01/14/19 08:45) Ondansetron Injection (Zofran Injectio (01/14/19 08:40) Medications Given in ED Current Medications Medications Dose Ordered Sig/Cam Route Start Time Stop Time Status Last Admin Dose Admin Diphenhydramine HCl 25 mg ONCE ONCE IM 01/14/19 06:45 01/14/19 06:46 DC 01/14/19 06:55 25 MG Iohexol 100 ml ONCE ONCE IV 01/14/19 07:45 01/14/19 07:46 DC 01/14/19 07:58 100 ML Ondansetron HCl 4 mg ONCE ONCE IVP 01/14/19 08:45 01/14/19 08:46 DC 01/14/19 08:45 4 MG Promethazine HCl 25 mg ONCE ONCE IVP 01/14/19 06:45 01/14/19 06:46 DC 01/14/19 06:54 25 MG Vital Signs/I&O 01/14/19 06:37 Temp 97.8 Pulse 80 Resp 18 B/P (MAP) 112/82 (92) Pulse Ox 97 O2 Delivery Room Air Progress Progress Note : Time: 09:03 Progress Note The patient's laboratory evaluation was unremarkable. Patient's CT of the abdomen and pelvis with contrast failed to demonstrate evidence of acute pathology. Treatment course: The patient received a liter of normal saline. Her nausea abated with Phenergan and Benadryl. She was subsequently given an additional dose of Zofran at her request. I discussed the findings with the patient and her . They will follow-up with their caregivers this week. I have prescribed Phenergan for her nausea at home. I invited her to return to the emergency department if she has any further problems or questions. Departure Impression Primary Impression: Nausea Disposition: 01 HOME, SELF-CARE Condition: Improved Departure-Patient Inst. Decision time for Depature: 09:07 Referrals: NO,LOCAL PHYSICIAN (PCP) Primary Care Physician Patient Instructions: Nausea and Vomiting of (DC) Add. Discharge Instructions: Follow-up with the doctors this week. Return if any problems or questions. Phenergan for nausea if needed. All discharge instructions reviewed with patient and/or family. Voiced understanding. Scripts Promethazine HCl (Promethazine Tablet) 25 Mg Tablet 25 MG PO Q6H PRN for NAUSEA/VOMITING, #20 TAB Prov: MONIE BOWEN MD 01/14/19 MONIE BOWEN MD Jan 14, 2019 06:47
[2019-01-14 06:51] LABS: BASOPHILS # (AUTO) 0.1 10^3/uL (0.0-0.1); BASOPHILS % (AUTO) 1 % (0-10); EOSINOPHILS # (AUTO) 0.4 10^3/uL (0.0-0.3); EOSINOPHILS % (AUTO) 3 % (0-10); HEMATOCRIT 45 % (35-52); HEMOGLOBIN 14.8 G/DL (11.5-16.0); LYMPHOCYTES # (AUTO) 9.4 X 10^3 (1.0-4.0); LYMPHOCYTES % (AUTO) 62 % (12-44); MEAN CORPUSCULAR HEMOGLOBIN 33 PG (25-34); MEAN CORPUSCULAR HGB CONC 33 G/DL (32-36); MEAN CORPUSCULAR VOLUME 99 FL (80-99); MEAN PLATELET VOLUME 9.9 FL (7.4-10.4); MONOCYTES # (AUTO) 0.9 X 10^3 (0.0-1.0); MONOCYTES % (AUTO) 6 % (0-12); NEUTROPHILS # (AUTO) 4.5 X 10^3 (1.8-7.8); NEUTROPHILS % (AUTO) 29 % (42-75); PLATELET COUNT 277 10^3/uL (130-400); RED CELL DISTRIBUTION WIDTH 13.2 % (10.0-14.5); WHITE BLOOD COUNT 15.3 10^3/uL (4.3-11.0)
[2019-01-14] MEDS ORDERED: NS IV 1000 ML 1,000 ML IV SCH (07:00)
[2019-01-14 07:10] LABS: ALANINE AMINOTRANSFERASE 21 U/L (0-55); ALBUMIN 4.4 GM/DL (3.2-4.5); ALKALINE PHOSPHATASE 68 U/L (40-136); BILIRUBIN,TOTAL 0.4 MG/DL (0.1-1.0); BUN/CREATININE RATIO 12; CALCIUM 9.8 MG/DL (8.5-10.1); CARBON DIOXIDE 23 MMOL/L (21-32); CHLORIDE 109 MMOL/L (98-107); CREATININE SERUM 0.81 MG/DL (0.60-1.30); GFR ESTIMATED > 60; GLUCOSE 97 MG/DL (70-105); LIPASE 48 U/L (8-78); POTASSIUM 3.9 MMOL/L (3.6-5.0); SODIUM 142 MMOL/L (135-145); TOTAL PROTEIN 7.4 GM/DL (6.4-8.2)
[2019-01-14 07:21] LABS: BAND NEUTROPHILS 0 %; BASOPHILS % (MANUAL) 1 %; EOSINOPHILS % (MANUAL) 1 %; LYMPHOCYTES % (MANUAL) 66 %; MONOCYTES % (MANUAL) 6 %; NEUTROPHILS % (MANUAL) 26 %; RBC MORPH NORMAL
[2019-01-14 07:32] LABS: BILIRUBIN,URINE NEGATIVE (NEGATIVE); CLARITY,URINE CLEAR; COLOR,URINE YELLOW; GLUCOSE, URINE (UA) NEGATIVE (NEGATIVE); KETONES,URINE NEGATIVE (NEGATIVE); LEUKOCYTE ESTERASE ,URINE NEGATIVE (NEGATIVE); NITRITE,URINE NEGATIVE (NEGATIVE); PH,URINE 7 (5-9); PROTEIN,URINE NEGATIVE (NEGATIVE); UROBILINOGEN,URINE NORMAL (NORMAL)
[2019-01-14 07:44] LABS: BACTERIA,URINE NEGATIVE /HPF; SQUAMOUS EPITHELIAL CELL,UR 0-2 /HPF
[2019-01-14] MEDS ORDERED: HOLD METFORMIN - RECEIVED CONTRAST 20 ML VIAL IV SCH (07:45)
[2019-01-14] MEDS ORDERED: IOHEXOL 350 MG/ML 100 ML (OMNIPAQUE 350) VIAL IV ONE (07:45)
--- NOTE | 2019-01-14 08:25 | Diagnostic Imaging Report ---
PROCEDURE: CT abdomen and pelvis with contrast. TECHNIQUE: Multiple contiguous axial images were obtained through the abdomen and pelvis after administration of intravenous contrast. Auto Exposure Controls were utilized during the CT exam to meet ALARA standards for radiation dose reduction. INDICATION: Mid abdominal pain with nausea. COMPARISON: 10/31/2013 FINDINGS: Included portions of the lung bases are clear. CT abdomen: Normal appendix is identified. Small bowel loops are nondistended. Moderate air and stool is noted scattered throughout the colon. The kidneys, adrenal glands, spleen, pancreas, and liver have a normal CT appearance. There is no loculated fluid collection, free fluid, nor free air within the abdomen. No abnormal mesenteric or retroperitoneal adenopathy is seen. There is moderate calcified aortic and arterial atherosclerosis. Bony structures show no acute abnormalities. CT pelvis: Urinary bladder is grossly unremarkable. There is no loculated fluid collection, free fluid, nor free air within the pelvis. No abnormal adenopathy is seen. Bony structures show no acute abnormalities. IMPRESSION: 1. No acute abnormality within the abdomen or pelvis. 2. Moderate colonic air and stool. Please correlate for constipation. Dictated by: Dictated on workstation # [id number]
[2019-01-14] MEDS ORDERED: ONDANSETRON 4 MG/2 ML (SDV) Z0FRAN ONE (08:40)
[2019-01-14] MEDS ORDERED: ONDANSETRON 4 MG/2 ML (SDV) Z0FRAN IVP ONE (08:45)
[2019-01-14] MEDS ORDERED: PROM25TA14 PO (09:09)
[2019-01-14 09:25] VITALS: BP 126/77
== END 2019-01-14 09:25 | disposition home or self-care (01) ==
LOC: EDUNIT# 06:01 → ER 06:03
DX: R11.0 Nausea (principal); J45.909 Unspecified asthma, uncomplicated; E78.00 Pure hypercholesterolemia, unspecified; E05.90 Thyrotoxicosis, unspecified without thyrotoxic crisis or storm; F41.9 Anxiety disorder, unspecified; F32.9 Major depressive disorder, single episode, unspecified; K21.9 Gastro-esophageal reflux disease without esophagitis; K58.9 Irritable bowel syndrome, unspecified; Z85.6 Personal history of leukemia; Z85.72 Personal history of non-Hodgkin lymphomas; Z87.19 Personal history of other diseases of the digestive system; Z87.440 Personal history of urinary (tract) infections; Z88.2 Allergy status to sulfonamides; Z88.8 Allergy status to other drugs, medicaments and biological substances; Z87.891 Personal history of nicotine dependence; Z90.710 Acquired absence of both cervix and uterus; Z98.51 Tubal ligation status
CPT/HCPCS: 36415; 74177; 80053; 81000; 83690; 85007; 85027

== ENCOUNTER 2019-04-08 13:48 | Outpatient (RCR) | payer BC ==
[~2019-04-08 13:48] MED LIST changes: +PROM25TA14 PO
== END 2019-07-07 | disposition home or self-care (01) ==
LOC: CARD 13:48
PROVIDERS: ATTEND Family Medicine
DX: I49.9 Cardiac arrhythmia, unspecified (principal)
CPT/HCPCS: 93225; 93226

== ENCOUNTER → 2019-04-12 | Outpatient (CLI) | payer BC ==
[2019-04-12 09:52] LABS: BASOPHILS # (AUTO) 0.1 10^3/uL (0.0-0.1); BASOPHILS % (AUTO) 1 % (0-10); EOSINOPHILS # (AUTO) 0.3 10^3/uL (0.0-0.3); EOSINOPHILS % (AUTO) 2 % (0-10); HEMATOCRIT 46 % (35-52); LYMPHOCYTES # (AUTO) 9.1 X 10^3 (1.0-4.0); LYMPHOCYTES % (AUTO) 66 % (12-44); MEAN CORPUSCULAR HEMOGLOBIN 33 PG (25-34); MEAN CORPUSCULAR HGB CONC 33 G/DL (32-36); MEAN CORPUSCULAR VOLUME 101 FL (80-99); MEAN PLATELET VOLUME 9.8 FL (7.4-10.4); MONOCYTES % (AUTO) 7 % (0-12); NEUTROPHILS # (AUTO) 3.3 X 10^3 (1.8-7.8); NEUTROPHILS % (AUTO) 24 % (42-75); PLATELET COUNT 237 10^3/uL (130-400); RED CELL DISTRIBUTION WIDTH 13.7 % (10.0-14.5); WHITE BLOOD COUNT 13.8 10^3/uL (4.3-11.0)
[2019-04-12 10:12] LABS: ALANINE AMINOTRANSFERASE 17 U/L (0-55); ALBUMIN 4.1 GM/DL (3.2-4.5); ALKALINE PHOSPHATASE 62 U/L (40-136); AMYLASE 219 U/L (25-125); BILIRUBIN,TOTAL 0.3 MG/DL (0.1-1.0); BUN/CREATININE RATIO 15; CALCIUM 9.6 MG/DL (8.5-10.1); CARBON DIOXIDE 27 MMOL/L (21-32); CHLORIDE 107 MMOL/L (98-107); CREATININE SERUM 0.86 MG/DL (0.60-1.30); GFR ESTIMATED > 60; GLUCOSE 77 MG/DL (70-105); LIPASE 238 U/L (8-78); POTASSIUM 4.1 MMOL/L (3.6-5.0); SODIUM 141 MMOL/L (135-145); TOTAL PROTEIN 7.1 GM/DL (6.4-8.2)
== END ==
LOC: LAB 09:34
PROVIDERS: ATTEND Family Medicine
DX: R10.10 Upper abdominal pain, unspecified (principal); R11.10 Vomiting, unspecified
CPT/HCPCS: 36415; 80053; 82150; 83690; 85025

== ENCOUNTER → 2019-04-12 | Outpatient (CLI) | payer BC ==
[~2019-04-12] MED LIST changes: +CATHETER FLUSH 10 ML SYR IV PRN; +HOLD METFORMIN - RECEIVED CONTRAST 20 ML VIAL IV SCH; +IOHEXOL 350 MG/ML 100 ML (OMNIPAQUE 350) VIAL IV ONE; +NS 100 ML (IVPB) BAG IV ONE
--- NOTE | 2019-04-12 16:41 | Diagnostic Imaging Report ---
PROCEDURE: CT abdomen and pelvis with contrast. TECHNIQUE: Multiple contiguous axial images were obtained through the abdomen and pelvis after administration of intravenous contrast. Auto Exposure Controls were utilized during the CT exam to meet ALARA standards for radiation dose reduction. INDICATION: Pancreatitis. FINDINGS: Comparison is 01/15/2019. Limited views of the lower thorax are normal. Liver is normal. No focal liver lesions are seen. Gallbladder is normal. No biliary ductal dilation. Portal vein is patent. The pancreas is normal. No fluid collections or stranding are seen. No pancreatic ductal dilation. No mass. Spleen and adrenal glands are normal. Kidneys enhance symmetrically without suspicious lesion. No hydronephrosis. Urinary bladder is normal. There is no pelvic mass. No dilated loops of large or small bowel. Appendix is normal. No abdominal or pelvic lymphadenopathy. No free fluid or air. The abdominal aorta is normal in caliber without aneurysm. There are no suspicious osseous lesions. There is moderate L4/L5 degenerative disc disease. IMPRESSION: 1. Normal pancreas, no acute abnormality in the abdomen or pelvis. Dictated by: Dictated on workstation # [id number]
== END ==
LOC: RAD 15:44
PROVIDERS: ATTEND Family Medicine
DX: R74.8 Abnormal levels of other serum enzymes (principal)
CPT/HCPCS: 74177

== ENCOUNTER → 2019-04-15 | Outpatient (CLI) | payer BC ==
[~2019-04-15] MED LIST changes: -CATHETER FLUSH 10 ML SYR IV PRN; -HOLD METFORMIN - RECEIVED CONTRAST 20 ML VIAL IV SCH; -IOHEXOL 350 MG/ML 100 ML (OMNIPAQUE 350) VIAL IV ONE; -NS 100 ML (IVPB) BAG IV ONE
[2019-04-15 16:17] LABS: ALANINE AMINOTRANSFERASE 18 U/L (0-55); ALBUMIN 4.4 GM/DL (3.2-4.5); ALKALINE PHOSPHATASE 68 U/L (40-136); AMYLASE 113 U/L (25-125); BILIRUBIN,TOTAL 0.4 MG/DL (0.1-1.0); BUN/CREATININE RATIO 14; CALCIUM 9.8 MG/DL (8.5-10.1); CARBON DIOXIDE 25 MMOL/L (21-32); CHLORIDE 107 MMOL/L (98-107); CREATININE SERUM 0.87 MG/DL (0.60-1.30); GFR ESTIMATED > 60; GLUCOSE 92 MG/DL (70-105); LIPASE 43 U/L (8-78); POTASSIUM 3.2 MMOL/L (3.6-5.0); SODIUM 142 MMOL/L (135-145); TOTAL PROTEIN 7.3 GM/DL (6.4-8.2)
== END ==
LOC: LAB 15:29
PROVIDERS: ATTEND Family Medicine
DX: K85.90 Acute pancreatitis without necrosis or infection, unspecified (principal)
CPT/HCPCS: 36415; 80053; 82150; 83690

== ENCOUNTER → 2019-04-16 | Outpatient (CLI) | payer BC ==
--- NOTE | 2019-04-16 10:26 | Diagnostic Imaging Report ---
Clinical indication: Patient with upper abdominal pain and vomiting. Exam: Right upper quadrant ultrasound. Comparison: CT scan of the abdomen and pelvis with contrast dated 04/12/2019. Findings: Portion of pancreatic head is partially obscured by bowel gas. Otherwise visualized portion of the pancreas is unremarkable. The visualized posterior abdominal aorta and IVC are unremarkable. The liver has normal echogenicity and echotexture. Liver surface is smooth. Liver measures 13.5 cm in craniocaudal dimension. There is no intrahepatic or extrahepatic ductal dilation. Common bile duct measures 1.6 mm. The main portal vein demonstrates biphasic hepatopetal flow. The gallbladder is unremarkable with no stones or sludge. There is no gallbladder wall thickening or pericholecystic fluid. There is no sonographic Bills sign. Right kidney is unremarkable with no stones, mass, hydronephrosis. Right kidney measures 9.6 cm in craniocaudal dimension. There is no abdominal ascites. Impression: Portions of pancreatic head is partially obscured by overlying bowel gas. Otherwise, unremarkable ultrasound of the right upper quadrant, as visualized. Dictated by: Dictated on workstation # [id number]
== END ==
LOC: RAD 09:29
PROVIDERS: ATTEND Family Medicine
DX: R10.11 Right upper quadrant pain (principal); R11.10 Vomiting, unspecified
CPT/HCPCS: 76705

== ENCOUNTER → 2019-05-16 | Outpatient (CLI) | payer BC ==
[2019-05-16 15:06] LABS: BASOPHILS # (AUTO) 0.1 10^3/uL (0.0-0.1); BASOPHILS % (AUTO) 1 % (0-10); EOSINOPHILS # (AUTO) 0.2 10^3/uL (0.0-0.3); EOSINOPHILS % (AUTO) 1 % (0-10); HEMATOCRIT 49 % (35-52); HEMOGLOBIN 16.3 G/DL (11.5-16.0); LYMPHOCYTES # (AUTO) 10.6 X 10^3 (1.0-4.0); LYMPHOCYTES % (AUTO) 56 % (12-44); MEAN CORPUSCULAR HEMOGLOBIN 33 PG (25-34); MEAN CORPUSCULAR HGB CONC 34 G/DL (32-36); MEAN CORPUSCULAR VOLUME 99 FL (80-99); MEAN PLATELET VOLUME 10.2 FL (7.4-10.4); MONOCYTES # (AUTO) 1.1 X 10^3 (0.0-1.0); MONOCYTES % (AUTO) 6 % (0-12); NEUTROPHILS # (AUTO) 7.1 X 10^3 (1.8-7.8); NEUTROPHILS % (AUTO) 37 % (42-75); PLATELET COUNT 258 10^3/uL (130-400); RED CELL DISTRIBUTION WIDTH 13.3 % (10.0-14.5)
[2019-05-16 15:51] LABS: BASOPHILS % (MANUAL) 1 %; LYMPHOCYTES % (MANUAL) 34 %; MONOCYTES % (MANUAL) 3 %; NEUTROPHILS % (MANUAL) 32 %; REACTIVE LYMPHOCYTES 30 %
[2019-05-16 15:52] LABS: RBC MORPH NORMAL
--- NOTE | 2019-05-16 16:18 | Diagnostic Imaging Report ---
INDICATION: Cough and congestion. Time of exam 2:48 p.m. COMPARISON: Correlation is made with prior study from 09/22/2017. FINDINGS: Lungs are hyperinflated consistent with COPD. The heart size is stable. The lungs are clear. There is no infiltrate, effusion or pneumothorax. IMPRESSION: COPD. No acute feature is detected. Dictated by: Dictated on workstation # [id number]
== END ==
LOC: RAD 14:34
PROVIDERS: ATTEND Family Medicine
DX: J44.9 Chronic obstructive pulmonary disease, unspecified (principal)
CPT/HCPCS: 36415; 71046; 85007; 85027

== ENCOUNTER → 2019-06-24 | Outpatient (CLI) | payer BC ==
[~2019-06-24] MED LIST changes: +HOLD METFORMIN - RECEIVED CONTRAST 20 ML VIAL IV SCH; +IOHEXOL 350 MG/ML 100 ML (OMNIPAQUE 350) VIAL IV ONE; +NS 100 ML (IVPB) BAG IV ONE
[2019-06-24 09:50] LABS: BUN/CREATININE RATIO 18; CREATININE SERUM 0.74 MG/DL (0.60-1.30); GFR ESTIMATED > 60
--- NOTE | 2019-06-24 12:59 | Diagnostic Imaging Report ---
PROCEDURE: CT neck soft tissue with contrast. TECHNIQUE: Multiple contiguous axial images were obtained through the neck after the administration of contrast. Auto Exposure Controls were utilized during the CT exam to meet ALARA standards for radiation dose reduction. INDICATION: Tonsillar pain. COMPARISON: There are no prior studies available for comparison. FINDINGS: There is no tonsillar mass or abscess identified. However, there are areas of diminished density within each tonsillar fossa. These findings were not clearly evident on the previous CT cervical spine exam of 08/08/2014, and they may represent mild edema due to inflammation/infection. Clinical followup is recommended. There is no mass or adenopathy noted. The parotid and submandibular glands are generally unremarkable. The thyroid gland does not seem to be enlarged, and the gland appears to be fairly homogeneous. There is no evidence for a hemodynamically significant stenosis of either carotid system. The vertebral arteries are codominant. The images through the skull base fail to show any sign of an acute intracranial abnormality. However, there is complete opacification of the right sphenoid sinus, and there is mild mucosal thickening in the floor of the right maxillary antrum. The lung apices are clear, although there are emphysematous changes throughout both upper lobes. The bone windows show no sign of a fracture or of a destructive lesion. There is moderate degenerative disc and bony disease at C3-C4 and C4-C5. IMPRESSION: 1. There is no sign of a tonsillar mass or abscess, but the areas of diminished density within the tonsillar fossae do suggest edema and could be related to inflammation/infection. Clinical followup is recommended. 2. There is no acute abnormality of the neck noted otherwise. 3. There is severe right sphenoid sinusitis and mild right maxillary sinusitis. 4. There are emphysematous changes involving both lungs. Dictated by: Dictated on workstation # [id number]
== END ==
LOC: RAD 09:15
PROVIDERS: ATTEND Otolaryngology Otolaryngology/Facial Plastic Surgery
DX: J32.3 Chronic sphenoidal sinusitis (principal); J43.9 Emphysema, unspecified
CPT/HCPCS: 36415; 70491; 82565; 84520

== ENCOUNTER 2019-08-13 15:55 | Outpatient (RCR) | payer BC ==
[~2019-08-13 15:55] MED LIST changes: -HOLD METFORMIN - RECEIVED CONTRAST 20 ML VIAL IV SCH; -IOHEXOL 350 MG/ML 100 ML (OMNIPAQUE 350) VIAL IV ONE; -NS 100 ML (IVPB) BAG IV ONE
== END 2019-11-11 | disposition home or self-care (01) ==
LOC: LAB 15:55
PROVIDERS: ATTEND Family Medicine
DX: R19.7 Diarrhea, unspecified (principal)
CPT/HCPCS: 87324; 87449

== ENCOUNTER → 2019-09-09 | Outpatient (CLI) | payer BC | LOC: LAB 12:20 | PROVIDERS: ATTEND Family Medicine | DX: K90.0 Celiac disease (principal) | CPT/HCPCS: 36415; 83520 ==

== ENCOUNTER → 2019-10-04 | Outpatient (CLI) | payer BC | LOC: RAD 09:35 | PROVIDERS: ATTEND Family Medicine | DX: Z12.31 Encounter for screening mammogram for malignant neoplasm of breast (principal) | CPT/HCPCS: 77067 ==

== ENCOUNTER 2019-11-08 12:00 | Outpatient (RCR) | payer BC | END 2020-02-06 | disposition home or self-care (01) | LOC: LAB 12:00 → EDSTATUS 12:01 | PROVIDERS: ATTEND Nurse Practitioner Family | DX: K58.9 Irritable bowel syndrome, unspecified (principal) | CPT/HCPCS: 87015; 87045; 87046; 87328; 87329; 87899 ==

== ENCOUNTER → 2019-11-21 | Outpatient (CLI) | payer BC ==
[~2019-11-21] MED LIST changes: +GADOBUTROL 7.5 MMOL/7.5 ML (GADAVIST) VIAL IV ONE
--- NOTE | 2019-11-21 10:17 | Diagnostic Imaging Report ---
PROCEDURE: MR imaging of the abdomen without contrast. TECHNIQUE: Multiplanar, multisequence MR imaging of the abdomen was performed without contrast. 3-D MIP reformats of the biliary system were created on a separate workstation and submitted for interpretation for MRCP protocol. INDICATION: Exocrine pancreatic insufficiency. Weight loss. COMPARISON: CT abdomen and pelvis from 04/12/2019. FINDINGS: Examination was ordered with and without contrast. However, after numerous attempts to gain intravenous access by the radiology nurse along with reliability technologist, intravenous access was unable to be obtained. Decision was made that noncontrast imaging could supplement the postcontrast CT performed prior, and noncontrast MRI was performed. The pancreas has normal signal intensity on T2- and T1-weighted imaging. No peripancreatic inflammatory stranding. No peripancreatic cyst. No mass lesion is identified within the pancreas. Postcontrast imaging of the pancreas from CT abdomen of 04/12/2019 showed no abnormality. The gallbladder is normally filled without gallstones or sludge. No gallbladder wall thickening or pericholecystic fluid. The common bile duct is normal in caliber measuring 3 mm and has smooth distal tapering. There is no choledocholithiasis. No biliary strictures are noted. Main pancreatic duct is normal in caliber, and there are no T2 hyperintense cystic lesions within the pancreas. The liver is normal in size, and there are no features of cirrhosis. No hepatic steatosis. The spleen is normal in size. Kidneys are normal. Allowing for motion artifact, no adrenal mass is appreciated. No abdominal lymphadenopathy. Normal-caliber abdominal aorta. No pleural effusions. IMPRESSION: 1. Pancreas is normal in appearance on noncontrast MRI. Retrospective review of the postcontrast CT from 04/12/2019 shows the pancreas to enhance normally without mass lesion. 2. Normal MRCP. Dictated by: Dictated on workstation # [id number]
== END ==
LOC: RAD 07:23
PROVIDERS: ATTEND Nurse Practitioner Family
DX: K86.81 Exocrine pancreatic insufficiency (principal); R63.4 Abnormal weight loss
CPT/HCPCS: 74181

== ENCOUNTER → 2019-12-06 | Outpatient (CLI) | payer MEDICARE, BC ==
[~2019-12-06] MED LIST changes: -GADOBUTROL 7.5 MMOL/7.5 ML (GADAVIST) VIAL IV ONE
--- NOTE | 2019-12-06 12:45 | Diagnostic Imaging Report ---
INDICATION: Chronic cough. PA and lateral chest obtained at 12:38 p.m. FINDINGS: Heart and mediastinal silhouette are normal in appearance. There is hyperinflation compatible with COPD. There is no focal infiltrate, pneumothorax, or pleural fluid. IMPRESSION: COPD changes with no acute process in the chest. The findings appeared similar on 05/16/2019. Dictated by: Dictated on workstation # [id number]
--- NOTE | 2019-12-06 13:02 | Diagnostic Imaging Report ---
PROCEDURE: US Thyroid. TECHNIQUE: Multiple real-time grayscale images were obtained of the thyroid in various projections. INDICATION: Thyromegaly. COMPARISON: No prior studies are available for comparison. FINDINGS: Thyroid is normal in size. Right lobe measures 3.3 x 0.7 x 1.2 cm, and the left lobe measures 2.6 x 0.5 x 0.7 cm. Isthmus is 1 mm in thickness. There is some mild thyroid parenchymal heterogeneity, but no discrete thyroid mass is detected. IMPRESSION: Normal-sized thyroid with mild parenchymal heterogeneity. No discrete mass is detected. Dictated by: Dictated on workstation # [id number]
== END ==
LOC: RAD 12:22
PROVIDERS: ATTEND Nurse Practitioner Family
DX: J44.9 Chronic obstructive pulmonary disease, unspecified (principal); E01.0 Iodine-deficiency related diffuse (endemic) goiter
CPT/HCPCS: 71046; 76536

== ENCOUNTER → 2020-01-06 | Outpatient (CLI) | payer MEDICARE, BC ==
--- NOTE | 2020-01-06 16:33 | Diagnostic Imaging Report ---
INDICATION: Injury to left second toe. TECHNIQUE: An AP view of the right foot as well as AP and oblique views of the right second toe were obtained. FINDINGS: No fracture or acute bony abnormality is seen. There is underlying degenerative change of the first MTP joint. IMPRESSION: Underlying degenerative change of the first MTP joint. No acute fracture is seen. Dictated by: Dictated on workstation # [id number]
== END ==
LOC: RAD 15:55
PROVIDERS: ATTEND Nurse Practitioner Family
DX: M19.071 Primary osteoarthritis, right ankle and foot (principal)
CPT/HCPCS: 73660

== ENCOUNTER 2020-01-09 11:38 | Outpatient (RCR) | payer BC, MEDICARE | END 2020-04-08 | disposition home or self-care (01) | LOC: CARD 11:38 | PROVIDERS: ATTEND Nurse Practitioner Family | DX: R00.2 Palpitations (principal) | CPT/HCPCS: 93225; 93226 ==

== ENCOUNTER → 2020-01-10 | Outpatient (CLI) | payer MEDICARE, BC ==
[2020-01-10 14:11] LABS: URIC ACID 4.3 MG/DL (2.6-7.2)
== END ==
LOC: LAB 13:27
PROVIDERS: ATTEND Nurse Practitioner Family
DX: L03.031 Cellulitis of right toe (principal)
CPT/HCPCS: 36415; 84550; 86141

== ENCOUNTER → 2020-02-04 | Outpatient (CLI) | payer BC, MEDICARE ==
--- NOTE | 2020-02-04 09:08 | Diagnostic Imaging Report ---
INDICATION: 46 pack year smoking history. Presents for low dose CT screening. COMPARISON: This is a baseline protocol study compared with the CT angio PE study dated 05/18/2013. TECHNIQUE: A noncontrasted low-dose CT screening chest was performed with multiplanar reconstructions. FINDINGS: There are changes of centrilobular emphysema with symmetrical air trapping as a chronic finding. Some right greater than left biapical pleural-parenchymal scarring shows mild progression from the study of 2012. No evidence for acute consolidation. No dominant lung mass or suspicious pulmonary nodularity. There is some very mild cylindrical central bronchiectasis with thickening of the ectatic airway willis, a chronic finding. No significant atelectasis. No evidence for adenopathy. The thoracic aorta is nonaneurysmal with mild scattered calcified plaque. No acute chest wall pathology. The visualized upper abdomen is nonacute. IMPRESSION: 1. Lung-RADS category 2: benign findings with emphysema and biapical pleural-parenchymal scarring but no dominant or suspect mass. 2. Continued low-dose CT screening followup in 1 year is recommended. Dictated by: Dictated on workstation # [id number]
== END ==
LOC: RAD 07:43
PROVIDERS: ATTEND Nurse Practitioner Family
DX: Z12.2 Encounter for screening for malignant neoplasm of respiratory organs (principal); Z87.891 Personal history of nicotine dependence; J43.9 Emphysema, unspecified

== ENCOUNTER → 2020-09-16 | Outpatient (CLI) | payer MEDICARE, OTHER ==
[~2020-09-16] MED LIST changes: -PANT40TA3 PO; +PANT40TA52 PO
--- NOTE | 2020-09-16 08:26 | Diagnostic Imaging Report ---
PROCEDURE: US Gallbladder. TECHNIQUE: Multiple real-time grayscale images were obtained over the right upper quadrant in various projections. INDICATION: Gastroesophageal reflux disease. FINDINGS: Liver is normal in size 13 cm. No discrete liver mass is detected. The portal vein is patent and shows normal direction of flow. The gallbladder is without stones or sludge. No wall thickening or biliary ductal dilatation is seen. Pancreas unremarkable. Aorta is nonaneurysmal. IVC is patent. Right kidney is without calculi or hydronephrosis. There is no ascites. IMPRESSION: Unremarkable gallbladder ultrasound. Dictated by: Dictated on workstation # [id number]
== END ==
LOC: RAD 07:45
PROVIDERS: ATTEND Nurse Practitioner Family
DX: K21.9 Gastro-esophageal reflux disease without esophagitis (principal)
CPT/HCPCS: 76705

== ENCOUNTER → 2020-09-30 | Outpatient (CLI) | payer MEDICARE, OTHER ==
[~2020-09-30] MED LIST changes: +CATHETER FLUSH 10 ML SYR IV PRN
--- NOTE | 2020-09-30 11:55 | Diagnostic Imaging Report ---
INDICATION: Abdominal pain. EXAMINATION: Hepatobiliary scan. TECHNIQUE: 5.36 mCi of Choletec was given intravenously for the scan. 8 ounces of Ensure was ingested 1 hour after the injection. FINDINGS: There is homogeneous uptake of isotope throughout the liver. The cystic duct and common duct are both patent. The gallbladder ejection fraction was calculated at 54%. IMPRESSION: Unremarkable hepatobiliary scan with ejection fraction. Dictated by: Dictated on workstation # [id number]
== END ==
PROVIDERS: ATTEND Nurse Practitioner Family
DX: K21.9 Gastro-esophageal reflux disease without esophagitis (principal)
CPT/HCPCS: 78227; A9537

== ENCOUNTER 2020-10-20 05:35 | Outpatient (RCR) | payer MEDICARE, OTHER ==
[~2020-10-20] VITALS: Ht 167.7 cm; Wt 54.5 kg
[~2020-10-20 05:35] MED LIST changes: +ATOR80TA76 PO; -CATHETER FLUSH 10 ML SYR IV PRN; +METO5TAB2 PO; +OMEP20TA7 PO
== END 2020-10-20 09:46 | disposition home or self-care (01) ==
LOC: PREOP 05:35
PROVIDERS: ATTEND Surgery
DX: Z01.812 Encounter for preprocedural laboratory examination (principal); K83.8 Other specified diseases of biliary tract; R13.10 Dysphagia, unspecified; Z20.822 Contact with and (suspected) exposure to COVID-19
CPT/HCPCS: 87635

== ENCOUNTER 2020-10-22 08:21 | Day surgery (SDC) | payer MEDICARE, OTHER ==
[2020-10-22] VITALS (10 sets, daily range): BP systolic 111–139; BP diastolic 52–76
[~2020-10-22] VITALS: Ht 167.7 cm; Wt 54.5 kg
--- NOTE | 2020-10-22 08:32 | Progress Note-Pre Operative ---
Pre-Operative Progress Note H&P Reviewed The H&P was reviewed, patient examined and no changes noted. Date Seen by Provider: Oct 22, 2020 Time Seen by Provider: 08:30 Date H&P Reviewed: Oct 22, 2020 Time H&P Reviewed: 08:25 Pre-Operative Diagnosis: Dysphagia, Biliary dyskinesia CHRISS ZAIDI APRN Oct 22, 2020 08:32
[2020-10-22] MEDS ORDERED: HYDR-4227 PO (08:34)
--- NOTE | 2020-10-22 08:34 | Discharge Inst-Surgical ---
D/C Lap Instructions-KIDO Reconcile Patient Problems Problems Reviewed?: Yes New, Converted, or Re-Newed RX: RX on Chart Follow Up Appt in 2 weeks Activity as tolerated No driving for 24 hours No driving while on pain medications Incentive Spirometry use every 2 hours while awake Regular Diet Symptoms to Report: Fever over 101 degree F, Nausea/Vomiting Infection Signs and Symptoms to report: Increased redness, Foul odor of wound, Increased drainage Bathing instructions: May shower Operative Area Clean/Dry; Keep incision clean/dry If any problems/questions: Contact your physician or go to Emergency Room CHRISS ZAIDI APRN Oct 22, 2020 08:34
[2020-10-22] MEDS ORDERED: HYDROcodone/APAP 5 MG/325 MG (LORTAB) TAB PO ONE (08:45)
[2020-10-22] MEDS ORDERED: ONDANSETRON 4 MG/2 ML (SDV) Z0FRAN IVP PRN ×2 (08:45→11:45)
[2020-10-22] MEDS ORDERED: morphine INJ 10 MG/ML 1ML (SYR OR VIAL) IVP PRN (08:45)
[2020-10-22] MEDS ORDERED: ACETAMINOPHEN 325 MG TABLET PO PRN (08:45)
[2020-10-22] MEDS ORDERED: ceFAZolin INJECTION 1,000 MG in WATER (STERILE) FOR INJECTION 10 ML IV ONE (09:00)
[2020-10-22] MEDS ORDERED: WATER (STERILE) FOR INJECTION 10 ML ONE (09:04)
[2020-10-22] MEDS ORDERED: FAMOTIDINE 20MG/2ML IV (PEPCID) ONE (09:04)
[2020-10-22] MEDS ORDERED: ceFAZolin INJECTION 1,000 MG ONE (09:04)
[2020-10-22] MEDS: LACTATED RINGERS 1,000 ML IV PRN ×2 (09:10→10:31)
[2020-10-22 09:14] LABS: BASOPHILS # (AUTO) 0.1 10^3/uL (0.0-0.1); BASOPHILS % (AUTO) 1 % (0-10); EOSINOPHILS # (AUTO) 0.3 10^3/uL (0.0-0.3); EOSINOPHILS % (AUTO) 1 % (0-10); HEMATOCRIT 45 % (35-52); HEMOGLOBIN 14.8 g/dL (11.5-16.0); LYMPHOCYTES # (AUTO) 15.2 10^3/uL (1.0-4.0); LYMPHOCYTES % (AUTO) 71 % (12-44); MEAN CORPUSCULAR HEMOGLOBIN 33 pg (25-34); MEAN CORPUSCULAR HGB CONC 33 g/dL (32-36); MEAN CORPUSCULAR VOLUME 101 fL (80-99); MEAN PLATELET VOLUME 9.5 fL (9.0-12.2); MONOCYTES # (AUTO) 0.9 10^3/uL (0.0-1.0); MONOCYTES % (AUTO) 4 % (0-12); NEUTROPHILS # (AUTO) 4.9 10^3/uL (1.8-7.8); NEUTROPHILS % (AUTO) 23 % (42-75); PLATELET COUNT 279 10^3/uL (130-400); WHITE BLOOD COUNT 21.5 10^3/uL (4.3-11.0)
[2020-10-22] MEDS ORDERED: FAMOTIDINE 20MG/2ML IV (PEPCID) IV ONE (09:15)
[2020-10-22] MEDS ORDERED: ONDANSETRON 4 MG/2 ML (SDV) Z0FRAN IV ONE (09:15)
[2020-10-22 09:34] LABS: BAND NEUTROPHILS 0 %; BASOPHILS % (MANUAL) 1 %; EOSINOPHILS % (MANUAL) 0 %; LYMPHOCYTES % (MANUAL) 8 %; MONOCYTES % (MANUAL) 4 %; NEUTROPHILS % (MANUAL) 26 %; RBC MORPH NORMAL; REACTIVE LYMPHOCYTES 61 %
[2020-10-22] MEDS ORDERED: SEVOFLURANE (ULTANE) 15 ML INHAL SOLN ONE ×5 (09:37→09:43)
[2020-10-22] MEDS ORDERED: fentaNYL INJECTION 100 MCG/2 ML AMP ONE (09:37)
[2020-10-22] MEDS ORDERED: proPOfol 200 MG/20 ML (DIPRIVAN) VIAL IV ONE (09:37)
[2020-10-22] MEDS ORDERED: NEOSTIGMINE 3 MG/3 ML VIAL ONE (09:37)
[2020-10-22] MEDS ORDERED: ONDANSETRON 4 MG/2 ML (SDV) Z0FRAN ONE (09:37)
[2020-10-22] MEDS ORDERED: ROCURONIUM 10 MG/ML 5 ML SYRINGE IV ONE (09:37)
[2020-10-22] MEDS ORDERED: MIDAZOLAM 2 MG/2 ML (VERSED) VIAL ONE (09:37)
[2020-10-22] MEDS ORDERED: LIDOCAINE PF 2% 5 ML (XYLOCAINE) VIAL ONE (09:37)
[2020-10-22] MEDS ORDERED: GLYCOPYRROLATE 0.2 MG/ML (ROBINUL) 2 ML VIAL ONE (09:37)
[2020-10-22] MEDS ORDERED: LIDOCAINE/EPI 1%-1:200,000 (XYLOCAINE) 10 ML VIAL ONE (09:43)
[2020-10-22] MEDS ORDERED: SUCCINYLCHOLINE INJ 100 MG/5 ML SYR/VIAL ONE (10:46)
--- NOTE | 2020-10-22 11:08 | Progress Note-Post Operative ---
Post-Operative Progess Note Surgeon (s)/Coffee Host (s) Surgeon Dr. Buzz Reynolds M.D. Coffee Host: Moses Zaidi CLEAT FEEDER Pre-Operative Diagnosis Dysphagia, Biliary dyskinesia Post-Operative Diagnosis Biliary dyskinesia, reflux esophagitis stage II, small hiatal hernia (1.5 cm), mild distal esophageal stricture, moderate gastritis Procedure & Operative Findings Date of Procedure 10/22/20 Procedure Performed/Findings Laparoscopic cholecystectomy, EGD with biopsy and balloon dilation Anesthesia Type GET Estimated Blood Loss Estimated blood loss (mL): Minimal Specimens/Packing Specimens Removed 1) Gallbladder 2) Antrum 3) GE junction MOSES ZAIDI CLEAT FEEDER Oct 22, 2020 11:08
[2020-10-22] MEDS ORDERED: fentaNYL INJECTION 100 MCG/2 ML AMP IVP ONE (11:45)
[2020-10-22] MEDS ORDERED: HYDROcodone/APAP 5 MG/325 MG (LORTAB) TAB ONE (12:44)
--- NOTE | 2020-10-22 12:53 | Anesthesia-General Post-Op ---
General Patient Condition Mental Status/LOC: Same as Preop Cardiovascular: Satisfactory Nausea/Vomiting: Absent Respiratory: Satisfactory Pain: Controlled Complications: Absent Post Op Complications Complications None Follow Up Care/Instructions Patient Instructions None needed. Anesthesia/Patient Condition Patient Condition Patient is doing well, no complaints, stable vital signs, no apparent adverse anesthesia problems. No complications reported per nursing. IVANIA PALM CRNA Oct 22, 2020 12:53
--- NOTE | 2020-10-22 15:53 | OPERATIVE REPORT ---
DATE OF SERVICE: 10/22/2020 ATTENDING PRIMARY INTERNAL AUDIT MANAGER: LINO Amezquita PREOPERATIVE DIAGNOSES: Symptomatic biliary dyskinesia, dysphagia. POSTOPERATIVE DIAGNOSES: Symptomatic biliary dyskinesia, reflux esophagitis stage II, mild distal esophageal stricture, small hiatal hernia 1.5 cm in size, moderate gastritis. No distal obstructions. PROCEDURE: Laparoscopic cholecystectomy, EGD with biopsy and balloon dilatation. SURGEON: Angelica Garcia MD. BELTING CUTTER: Moses Pichardo APRN. ANESTHESIA: General endotracheal. ESTIMATED BLOOD LOSS: Minimal. FINDINGS: Symptomatic biliary dyskinesia, reflux esophagitis stage II, mild distal esophageal stricture, small hiatal hernia 1.5 cm in size, moderate gastritis. No distal obstructions. DISPOSITION: The patient tolerated the procedure well. INDICATIONS: The patient is a 65-year-old female who is known to us. She has had a longstanding history of gastroesophageal reflux disease as well as dysphagia. In 2019, we had done an EGD and was found to have a mild esophageal stricture and underwent a balloon dilatation. She states that her symptoms have returned slowly over time; however, she has developed new symptoms including abdominal bloating as well as right upper abdominal quadrant pain with radiation towards the back, usually following meals. An ultrasound was performed, which did not show any gallstones. She then underwent a HIDA scan, which did show a normal ejection fraction of 51%. However, during the administration of the Kinevac analogue, she did have reproduction of symptoms with nausea and abdominal bloating consistent with a biliary dyskinesia. DESCRIPTION OF PROCEDURE: The patient was brought to the operating room, laid supine on the table. After adequate IV pain and sedative medications and general endotracheal intubation, the abdomen was prepped and draped in standard surgical fashion. A 0.5% Marcaine with epinephrine was used to anesthetize the overlying skin in the left upper abdominal quadrant and a transverse skin incision made using a 15 blade. An 0 silk suture was applied to the medial aspect of the incision for retraction and a Veress needle inserted with a low opening pressure of 0 mmHg. The abdomen was insufflated to 15 mmHg pressure. The Veress needle removed and a 5 mm XL trocar placed followed by a 5 mm 45-degree angle laparoscope visualizing the peritoneal cavity. A 4-quadrant abdominal exploration was performed. There was a slightly distended gallbladder as well as mild omental adhesions towards the fundus of the gallbladder. There was no gallbladder wall thickening. Under direct visualization, we then proceeded to place a supraumbilical 10 mm port after the skin and peritoneal lining were anesthetized using 0.5% Marcaine with epinephrine and a transverse skin incision made using a 15 blade. In a similar manner, a right upper abdominal quadrant 5 mm port was placed. The patient was then placed in a reverse Trendelenburg position as well as plane right side up, left side down. The fundus of the gallbladder was then retracted anteriorly and superiorly and the omental adhesions were then taken down using electrocautery as well as blunt dissection and hook instrument. The hepatoduodenal ligament was then opened and dissected with blunt dissection as well as electrocautery using the hook instrument. The entire critical view of safety was identified including the triangle of Calot as well as the cystic duct and artery as the only two structures going into the gallbladder as well as the cystic plate behind the proximal gallbladder. A timeout was then taken and the cystic duct and artery were then clipped proximally and distally and cut with EndoShears. The gallbladder was then dissected off the liver bed using cautery on hook instrument with visualization of good hemostasis as well as no leaking ducts of Luschka. The gallbladder was removed through the 10 mm port site using an EndoCatch bag. The 10 mm port site fascia and peritoneum were then closed under direct visualization using a Eron-Kimberly device and 0 Vicryl suture. The abdomen was desufflated and remaining ports removed. All skin incisions were closed using 4-0 Monocryl running subcuticular sutures. Wounds were then cleaned and covered with Dermabond. We then proceeded with an EGD portion of the procedure and the mouthpiece was applied. The endoscope was placed in the mouth, visualizing the pharynx and hypopharyngeal region. Vocal cords, epiglottis and vallecula identified and appeared to be normal. The endoscope was then placed in the mouth, visualized the pharynx and hypopharyngeal region. The endoscope was then gently intubated. The esophageal opening and esophagus insufflated. The endoscope was then advanced to the first, second and third portion of the esophagus at the level of the GE junction, a reflux esophagitis stage II identified as well as a mild distal esophageal stricture. A biopsy was taken with forceps with visualization of good hemostasis. The endoscope was then advanced in the stomach and endoscope retroflexed, visualizing a small hiatal hernia approximately 1.5 cm in size. There was a moderate severity gastritis. No formal ulcerations, polyps, or any neoplasms. A biopsy was taken of the antrum to rule out H. pylori with visualization of good hemostasis. The endoscope was then advanced to the pylorus and the first and second portion of the duodenum, which appeared normal with no distal obstructions. We then proceeded with balloon dilatation and the balloon was placed in the stomach and pulled back to the area of the stricture. We first proceeded to 2 and then 4 atmospheres of pressure. We then had mild to moderate resistance at 6 atmospheres of pressure or 20 mm in luminal diameter and left this in place for approximately 60 seconds. The balloon was then desufflated and removed with visualization of good hemostasis as well as no mucosal tears. The endoscope was then slowly withdrawn while taking a second look and suctioning of residual air with no additional findings. The patient tolerated the procedure well. We will start IV normal pain medication as well as a clear liquid diet. When she is tolerating clears, has good pain control with oral pain medication and is ambulating well, we will discharge her home. She will be instructed to proceed with the necessary lifestyle and diet accommodation including small and more frequent meals, avoidance of eating at night as well as head elevation while lying supine. She also needs to proceed with smoking cessation as well as avoidance of caffeinated beverages, spicy, greasy and acidic foods. We will also have her continue with Protonix 40 mg daily. Job ID: [id number] DocumentID: [id number] Dictated Date: 10/22/2020 11:29:08 Audio Recording Engineer Date: 10/22/2020 15:52:23 Dictated By: ANGELICA GARCIA MD
--- NOTE | 2020-11-05 14:11 | HISTORY AND PHYSICAL ---
DATE OF ADMISSION: 10/22/2020. ATTENDING DRY PRESS OPERATOR: Mckayla Aleman DNP HISTORY OF PRESENT ILLNESS: The patient is a 65-year-old female known to us. She has had a history of gastroesophageal reflux disease as well as a known esophageal stricture, small hiatal hernia identified on EGD on 01/02/2019. She underwent a balloon dilatation at that time and states that her symptoms of dysphagia did relieve over time; however, she has had recurrence of her symptoms. She also reports that she has had increasing pain as well as nausea and abdominal bloating for the past several months. She reports that she has had this for some amount of time; however, for the past few months, this has become much more frequent and usually follows a meal. She describes the pain as crampy in nature and is located in the right upper abdominal quadrant with radiation towards the back. Upon further questioning, she reports that she has had a previous ultrasound was performed, which did show gallstones sludge. She underwent a recent HIDA scan, which did show a normal ejection fraction of 51%. However, during the administration of a Kinevac analogue, she did have reproduction of symptoms with abdominal bloating as well as significant nausea and crampy abdominal pain. This was consistent with chronic calculous cholecystitis. PAST MEDICAL HISTORY: Chronic lymphocytic leukemia, gastroesophageal reflux disease, esophageal stricture, hypercholesterolemia, hypothyroid, severe constipation. PAST SURGICAL HISTORY: Total hysterectomy in 90s, carpal tunnel release, 98. ALLERGIES: No known drug allergies. MEDICATIONS: Linzess 229 mg daily, levothyroxine 75 mcg daily, Protonix 40 mg daily, zolpidem 5 mg daily, amitriptyline 25 mg daily, chlorpromazine 25 mg daily, Travatan eyedrops daily, Reglan 5 mg q.6 hours p.r.n. Atorvastatin daily. SOCIAL HISTORY: Previous smoker, greater than 40 pack years. States that she has not smoked for the past 4 months. Negative alcohol. FAMILY HISTORY: Mother, diabetes. Father, myocardial infarction. VITAL SIGNS: Blood pressure 132/60, current weight 120 pounds at 5 feet 6 inches. REVIEW OF SYSTEMS: Well-nourished female, currently in no acute distress. She is not experiencing any shortness of breath or difficulty breathing. She does have a chronic cough, which is nonproductive. Intermittent episodes of abdominal distention following meals as well as intermittent nausea. She also does have dysphagia usually for breads and dry crackers as well as a lean meats approximately two times a week. No hematemesis, no coffee ground emesis, severe constipation; however, does have a bowel movement daily with Linzess. No red blood per rectum, no dark tarry stools. No fever, chills, no recent inadvertent weight loss. All other review of systems negative. PHYSICAL EXAMINATION: CHEST: Distant breath sounds with scattered wheezes bilaterally. HEART: Regular, no murmurs. EXTREMITIES: No lower extremity edema, negative Homans sign. HEENT: No scleral icterus. NECK: No cervical lymphadenopathy. ABDOMEN: Soft, nondistended. There is pain in the right upper abdominal quadrant upon deep palpation. No peritoneal signs. No hernias. SKIN: Warm, dry. ASSESSMENT AND PLAN: A 65-year-old female with a symptomatic chronic calculous cholecystitis as well as recurrent esophageal stricture and symptomatic dysphagia. We will schedule her for any laparoscopic cholecystectomy as well as an EGD biopsy as well as a balloon dilatation as necessary. Job ID: [id number] DocumentID: [id number] Dictated Date: 10/13/2020 15:17:18 Rigging Loft Mechanic Date: 10/13/2020 15:38:34 Dictated By: ANGELICA GARCIA MD <Dictated by ANGELICA GARCIA MD> <Electronically signed by ANGELICA GARCIA MD> 10[facility]13/20 1640 [facility]
== END 2020-10-22 13:32 | disposition home or self-care (01) ==
LOC: SDC 08:21
PROVIDERS: ATTEND Surgery
DX: K81.1 Chronic cholecystitis (principal); K82.8 Other specified diseases of gallbladder; K21.00 Gastro-esophageal reflux disease with esophagitis, without bleeding; K22.2 Esophageal obstruction; K44.9 Diaphragmatic hernia without obstruction or gangrene; F32.9 Major depressive disorder, single episode, unspecified; F41.9 Anxiety disorder, unspecified; J45.909 Unspecified asthma, uncomplicated; E78.00 Pure hypercholesterolemia, unspecified; E03.9 Hypothyroidism, unspecified; Z79.899 Other long term (current) drug therapy; Z88.2 Allergy status to sulfonamides; Z88.8 Allergy status to other drugs, medicaments and biological substances; Z85.6 Personal history of leukemia; Z87.891 Personal history of nicotine dependence; Z90.710 Acquired absence of both cervix and uterus; Z83.3 Family history of diabetes mellitus
CPT/HCPCS: 36415; 85007; 85027; 87081; 88304; 88305

== ENCOUNTER → 2022-04-28 | Outpatient (CLI) | payer MEDICARE, OTHER ==
[~2022-04-28] VITALS: Ht 170.2 cm; Wt 55.9 kg
[~2022-04-28] MED LIST changes: +ACETAMINOPHEN 500 MG TAB (TYLENOL) PO PRN; +BEBTELOVIMAB 175 MG/2 ML VIAL IV ONE; +EPINEPHrine INJECTION 1 MG/ML AMP IM PRN; +HYDR-4227 PO; +OMEP20TA56 PO; -OMEP20TA7 PO; +ONDANSETRON 4 MG/2 ML (SDV) Z0FRAN IV PRN; +diphenhydrAMINE 50 MG/ML INJ (BENADRYL) IV PRN
[2022-04-28 09:30] VITALS: BP 109/67
[2022-04-28 10:15] VITALS: BP 114/60
== END ==
LOC: INFUSION 09:13
PROVIDERS: ATTEND Nurse Practitioner Family
DX: U07.1 COVID-19 (principal)

== ENCOUNTER → 2022-07-04 | Outpatient (CLI) | payer MEDICARE, OTHER ==
[~2022-07-04] MED LIST changes: -ACETAMINOPHEN 500 MG TAB (TYLENOL) PO PRN; -BEBTELOVIMAB 175 MG/2 ML VIAL IV ONE; +CHLO25TA PO; -CHLO25TA20 PO; -EPINEPHrine INJECTION 1 MG/ML AMP IM PRN; -ONDANSETRON 4 MG/2 ML (SDV) Z0FRAN IV PRN; -diphenhydrAMINE 50 MG/ML INJ (BENADRYL) IV PRN
--- NOTE | 2022-07-04 14:15 | Diagnostic Imaging Report ---
EXAMINATION: CT chest without contrast (lung screening). TECHNIQUE: Multiple contiguous axial images were obtained through the chest without the use of intravenous contrast according to lung cancer screening protocol. All CT scans use one or more of the following dose optimizing techniques: automated exposure control, MA and/or KvP adjustment based on patient size and exam type or iterative reconstruction. HISTORY: 40 pack year history of smoking. COMPARISON: 02/04/2020 FINDINGS: There is no edema or pneumonia. No pleural effusion. No pneumothorax. No suspicious nodules. There is no axillary or supraclavicular lymphadenopathy. There is no mediastinal lymphadenopathy. Heart size is normal. There are mild coronary artery calcifications. No pericardial effusion. Aorta is normal in caliber. Limited views of the upper abdomen are unremarkable. There are no suspicious osseus lesions. IMPRESSION: 1. No suspicious pulmonary nodules. LUNG-RADS CATEGORY: 1 MODIFIER: None. Dictated by: Dictated on workstation # [id number]
== END ==
LOC: RAD 12:45
PROVIDERS: ATTEND Nurse Practitioner Family
DX: Z12.2 Encounter for screening for malignant neoplasm of respiratory organs (principal); F17.210 Nicotine dependence, cigarettes, uncomplicated
CPT/HCPCS: 71271

== ENCOUNTER → 2023-08-31 | Outpatient (CLI) | payer MEDICARE, OTHER ==
[~2023-08-31] MED LIST changes: +ALBU8.5H6 IH; +CATHETER FLUSH 10 ML SYR IVP PRN; -RT-ALBUINH IH
[2023-08-31 07:57] VITALS: BP 118/77
--- NOTE | 2023-09-04 15:36 | STRESS TEST ---
DATE OF SERVICE: 08/31/2023 RESTING AND POST EXERCISE TECHNETIUM-99M TETROFOSMIN SPECT CT IMAGING ORDERING PHYSICIAN: Dr. Aleman. PRIMARY PHYSICIAN: Dr. Aleman. CLINICAL DIAGNOSIS: Chest discomfort. Baseline images were carried out after injection of 9 mCi of technetium-99m tetrofosmin. This was followed by exercise on a treadmill, which was supervised by Dr. Aleman and is reported separately by him. After the patient had attained 85% of maximum predicted heart rate, 32.7 mCi technetium-99m Tetrofosmin were injected and the exercise was continued for another minute. Review of images at rest and following stress does not indicate any significant perfusion defects consistent with myocardial ischemia or infarction. Gated images show normal global left ventricular systolic function with normal regional wall motion. Left ventricular ejection fraction is calculated to be 61%. CONCLUSIONS: 1. No evidence of significant myocardial ischemia or infarction. 2. Normal regional wall motion. 3. Normal global left ventricular systolic function with a calculated ejection fraction of 61%. Job ID: [id number] DocumentID: [id number] Dictated Date: 09/04/2023 09:45:16 Border Inspector Date: 09/04/2023 15:33:00 Dictated By: ERIC COWAN MD; QUINN; FACP; FACC;
== END ==
LOC: CARD 06:31
PROVIDERS: ATTEND Internal Medicine
DX: R07.89 Other chest pain (principal)
CPT/HCPCS: 78452; 93017; A9502